=== PATIENT | female | born 1950 | race Caucasian/White ===

== ENCOUNTER → 2020-04-11 13:28 | Outpatient (BNVA) | payer MEDICARE, OTHER, SELFPAY | PROVIDERS: Family Provider Registered Nurse; PCP Registered Nurse; Visit Provider Nurse Practitioner Family | DX: K21.9 Gastro-esophageal reflux disease without esophagitis (principal); I10 Essential (primary) hypertension | CPT/HCPCS: 80048 ==

== ENCOUNTER → 2021-04-17 13:50 | Outpatient (BNVA) | payer MEDICARE, OTHER, SELFPAY | PROVIDERS: Family Provider Registered Nurse; PCP Registered Nurse; Visit Provider Nurse Practitioner Family | DX: I10 Essential (primary) hypertension (principal); K21.9 Gastro-esophageal reflux disease without esophagitis; Z79.899 Other long term (current) drug therapy | CPT/HCPCS: 80053 ==

== ENCOUNTER → 2021-04-26 09:46 | Outpatient (BNVA) | payer MEDICARE, OTHER, SELFPAY | PROVIDERS: Family Provider Registered Nurse; PCP Registered Nurse; Visit Provider Nurse Practitioner Family | DX: R73.9 Hyperglycemia, unspecified (principal) | CPT/HCPCS: 83036 ==

== ENCOUNTER 2021-08-08 12:54 | Outpatient (CLI) | payer MEDICARE, OTHER, SELFPAY ==
--- NOTE | 2021-08-08 13:00 | MR_ITS ---
WS: [id number] MRI LUMBAR SPINE NONCONTRAST TECHNIQUE: Sagittal T1, T2 and STIR imaging. Axial T1 and T2 imaging. CLINICAL INFORMATION: M51.36 - Other intervertebral disc degeneration, lumbar r... COMPARISON: None. FINDINGS: Mild lumbar curve. No acute compression. Grade 1 anterolisthesis L4 on L5. Small disc protrusions wor se at L1-2, L2-3, L3-4. Tiny disc protrusions in the lower thoracic spine. Small disc herniation T12- L1. L1-L2: Central disc herniation with slight subligamentous migration of disc material. Moderate centra l canal stenosis with impingement on the right subarticular recess and traversing right L2 nerve root . Moderate right foraminal narrowing. Moderate facet arthropathy. L2-L3: Small central disc protrusion. Moderate central canal stenosis. Impingement subarticular reces s bilaterally. Moderate right and mild left foraminal narrowing. Moderate facet arthropathy. L3-L4: Mild disc bulging with moderate to severe central canal stenosis. Moderate facet arthropathy l igament flavum hypertrophy. Impingement subarticular recess bilaterally. Moderate left and mild right foraminal narrowing. L4-L5: Grade 1 anterolisthesis. Severe central canal stenosis. Advanced facet arthropathy with ligame nt flavum hypertrophy. Impingement traversing L5 nerve roots bilaterally. Severe left and mild right foraminal narrowing. L5-S1: Mild disc osteophyte complex with endplate ridging. Slight effacement of ventral thecal sac. F oramen are patent. Moderate facet arthropathy. Mild central canal stenosis cervical spine on the flatwork catcher imaging worse at C5-C6 and C6-C7. Prominent c entral protrusion in the thoracic spine at T7-T8 with moderate central canal stenosis and indentation on the thoracic cord. This can be further evaluated with thoracic spine MRI. Enlarged multinodular t hyroid gland partially visualized in the flatwork catcher imaging Visualized pelvic bony structures: Normal. Paravertebral soft tissues: Normal. MR/MR lumbar spine wo con* [id number] IMPRESSION: 1. Severe central canal stenosis L4-5 with grade 1 anterolisthesis and mild di sc bulging. High-grade central canal stenosis with impingement on the traversin g L5 nerve roots bilaterally. 2. Severe left L4-5 foraminal narrowing impinges the exiting left L4 nerve india t. 3. Moderate central canal stenosis with small disc herniations at L1-2, L2-3, and L3-4 worse at L3-4. 4. Moderate right L1-2, and left L3-4 foraminal narrowing. 5. Moderate to advanced facet arthropathy L3-L5. 6. Enlarged multinodular thyroid partially visualized on the flatwork catcher imaging. Th is could be further evaluated with ultrasound. 7. Prominent central disc protrusion flatwork catcher imaging thoracic spine at T7-8 with moderate central canal stenosis. Recommend thoracic spine MRI. 8. Mild central canal stenosis cervical spine seen on the flatwork catcher imaging
== END 2021-08-08 12:55 | disposition home or self-care (01) ==
LOC: RADSHAW 13:03
PROVIDERS: Family Provider Registered Nurse; PCP Registered Nurse; Visit Provider Nurse Practitioner Family
DX: M51.36 Other intervertebral disc degeneration, lumbar region (principal); M48.061 Spinal stenosis, lumbar region without neurogenic claudication; M51.26 Other intervertebral disc displacement, lumbar region; M47.816 Spondylosis without myelopathy or radiculopathy, lumbar region; M51.24 Other intervertebral disc displacement, thoracic region; E04.2 Nontoxic multinodular goiter
CPT/HCPCS: 72148

== ENCOUNTER → 2021-08-09 10:57 | Outpatient (BNVA) | payer MEDICARE, OTHER, SELFPAY | PROVIDERS: Family Provider Registered Nurse; PCP Registered Nurse; Visit Provider Nurse Practitioner Family | DX: E04.2 Nontoxic multinodular goiter (principal); E04.1 Nontoxic single thyroid nodule | CPT/HCPCS: 84439; 84443 ==

== ENCOUNTER → 2021-09-18 12:55 | Outpatient (BNVA) | payer MEDICARE, OTHER, SELFPAY | PROVIDERS: Family Provider Registered Nurse; PCP Registered Nurse; Visit Provider Internal Medicine | DX: E04.1 Nontoxic single thyroid nodule (principal) | CPT/HCPCS: 99204 ==

== ENCOUNTER 2021-10-11 12:51 | Outpatient (CLI) | payer MEDICARE, OTHER, SELFPAY ==
--- NOTE | 2021-10-11 13:30 | US_ITS ---
WS: [id number] THYROID ULTRASOUND HISTORY: E04.1 - Nontoxic single thyroid nodule COMPARISON: None available. Technically very difficult evaluation of the thyroid due to body habitus. Right lobe: 1.9 cm x 3.0 cm x 4.7 cm (w x ap x l). Volume: 14.3 cm3. Enlarged heterogeneous and ill-defined gland. No discrete nodule. Left lobe: 1.5 cm x 2.0 cm x 4.3 cm (w x ap x l). Volume: 6.8 cm3. Mildly enlarged gland and heterogeneity. Isthmus: 0.8 cm. Very helpful echogenicity within the isthmus. US/US thyroid [id number] IMPRESSION: 1. Enlarged heterogeneous gland with variable echogenicity. Probably represent ing a multinodular goiter. Overall evaluation is very difficult due to body hab itus. No discrete nodules.
== END 2021-10-11 12:52 | disposition home or self-care (01) ==
LOC: RAD 12:53
PROVIDERS: PCP Registered Nurse; Visit Provider Nurse Practitioner Family
DX: E04.1 Nontoxic single thyroid nodule (principal); E04.9 Nontoxic goiter, unspecified
CPT/HCPCS: 76536

== ENCOUNTER 2021-10-30 08:02 | Outpatient (CLI) | payer MEDICARE, OTHER, SELFPAY ==
--- NOTE | 2021-10-30 09:00 | US_ITS ---
WS: [id number] INDICATION: Thyroid nodule TECHNIQUE: Ultrasound-guided FNA FINDINGS: The procedure including risks, benefits, and complications were discussed with the patient who agreed to proceed. Timeout was performed. Using sterile technique patient was prepped and draped in usual sterile fashion. After 1% lidocaine, using ultrasound guidance, a 25-gauge needle was advanc ed into the left upper thyroid nodule. 5 passes were made with active aspiration. Pathology was prese nt for slide preparation. No immediate complications. Patient remained in the ultrasound Suite 20 min utes postprocedure with intermittent ultrasound to ensure no hematoma. No hematoma 20 minutes postpro cedure. US/US biopsy/FNA thyroid [id number] IMPRESSION: Uncomplicated ultrasound-guided thyroid FNA
== END 2021-10-30 08:03 | disposition home or self-care (01) ==
LOC: RAD 08:09
PROVIDERS: PCP Registered Nurse; Visit Provider Internal Medicine
DX: E04.1 Nontoxic single thyroid nodule (principal)
CPT/HCPCS: 10005; 88173; 88305

== ENCOUNTER → 2021-11-16 10:16 | Outpatient (BNVA) | payer MEDICARE, OTHER, SELFPAY | PROVIDERS: PCP Registered Nurse; Visit Provider Nurse Practitioner Family | DX: E04.1 Nontoxic single thyroid nodule (principal); I10 Essential (primary) hypertension; E55.9 Vitamin D deficiency, unspecified | CPT/HCPCS: 80053; 82306; 84443 ==

== ENCOUNTER → 2022-02-19 13:28 | Outpatient (BNVA) | payer MEDICARE, OTHER, SELFPAY | PROVIDERS: PCP Registered Nurse; Visit Provider Internal Medicine | DX: E04.1 Nontoxic single thyroid nodule (principal); M54.9 Dorsalgia, unspecified | CPT/HCPCS: 99213; 99214 ==

== ENCOUNTER → 2022-02-25 09:13 | Outpatient (BNVA) | payer MEDICARE, OTHER, SELFPAY | PROVIDERS: PCP Registered Nurse; Visit Provider Nurse Practitioner Family | DX: E55.9 Vitamin D deficiency, unspecified (principal); I10 Essential (primary) hypertension | CPT/HCPCS: 80053; 80061; 82306 ==

== ENCOUNTER 2022-03-25 13:33 | Outpatient (CLI) | payer MEDICARE, OTHER, SELFPAY ==
--- NOTE | 2022-03-25 13:30 | US_ITS ---
WS: [id number] THYROID ULTRASOUND HISTORY: assess change in size in thyroid nodule COMPARISON: 10/11/2021 Evaluation of the thyroid is very difficult due to body habitus and the enlarged thyroid which extend s substernal. Right lobe: 2.4 cm x 2.9 cm x 6.6 cm (w x ap x l). Volume: 23.7 cm3. Enlarged incompletely visualized RIGHT thyroid. Multinodular with mild variable echogenicity. Predomi nantly low echogenicity with lobulated contours extends posterior and substernal. Probably not signif icantly changed in size. Left lobe: 1.6 cm x 2.3 cm x 3.3 cm (w x ap x l). Volume: 6.2 cm3. Heterogeneous lobulated thyroid. Similar to the prior study. Isthmus: 0.9 cm. Nodular hypoechoic enlarged isthmus. US/US thyroid [id number] IMPRESSION: 1. Very difficult evaluation of the thyroid gland. Diffusely abnormal thyroid but greatest involving the RIGHT lobe and the isthmus. There is no one discrete area that stands out as being more abnormal than another. This may all simply be a multinodular goiter. A neoplasm cannot be excluded. With the extent of dis ease a focused biopsy would probably not be helpful as there is no one focal ar ea to concentrate the biopsy on. For further evaluation surgical removal may be necessary.
== END 2022-03-25 13:34 | disposition home or self-care (01) ==
LOC: RAD 13:37
PROVIDERS: PCP Registered Nurse; Visit Provider Internal Medicine
DX: E04.1 Nontoxic single thyroid nodule (principal)
CPT/HCPCS: 76536

== ENCOUNTER → 2022-04-01 12:23 | Outpatient (BNVA) | payer MEDICARE, OTHER, SELFPAY | PROVIDERS: PCP Registered Nurse; Visit Provider Internal Medicine | DX: E04.1 Nontoxic single thyroid nodule (principal) | CPT/HCPCS: 99214 ==

== ENCOUNTER 2022-07-02 09:39 | Outpatient (CLI) | payer MEDICARE, OTHER, SELFPAY ==
--- NOTE | 2022-07-02 10:00 | US_ITS ---
WS: [id number] THYROID ULTRASOUND HISTORY: abnormal thyroid US COMPARISON: 03/25/2022, 10/30/2021, 10/11/2021 Right lobe: 1.9 cm x 2.5 cm x 4.7 cm (w x ap x l). Volume: 11.7 cm3. Enlarged lobulated mildly heterogeneous thyroid. The entire gland is lobulated although there is no 1 discrete nodule. There is distortion of the adjacent soft tissues. Thyroid extends both anterior and posterior from the normal position of the thyroid. Similar appearance on the study of 10/11/2021. On a few images there may be extension beyond the thyroid gland into the adjacent strap muscles. No terry cifications or echogenic foci. Left lobe: 1.4 cm x 2.4 cm x 3.5 cm (w x ap x l). Volume: 6.2 cm3. The entire gland is enlarged and lobulated and hypoechoic. Similar in appearance to prior studies. LE FT thyroid was biopsied on 10/30/2021. Isthmus: 0.9 cm. Nodular appearance to the isthmus. US/US thyroid [id number] IMPRESSION: 1. Enlarged mildly heterogeneous thyroid. The entire gland is hypoechoic and m ildly nodular although enlarged. Neoplasm would be difficult to detect due to t his extensive enlargement. 2. Focal area of possible invasion into the strap muscle involving the RIGHT t hyroid versus enlargement and displacement of the strap muscle. Fine-needle asp iration may be helpful in this location. 3. Prior LEFT thyroid biopsy has been performed.
== END 2022-07-02 09:40 | disposition home or self-care (01) ==
LOC: RAD 09:39
PROVIDERS: PCP Registered Nurse; Visit Provider Internal Medicine
DX: E04.1 Nontoxic single thyroid nodule (principal); E04.9 Nontoxic goiter, unspecified
CPT/HCPCS: 76536

== ENCOUNTER → 2022-08-20 14:22 | Outpatient (BNVA) | payer MEDICARE, OTHER, SELFPAY | PROVIDERS: PCP Registered Nurse; Visit Provider Orthopaedic Surgery | DX: M48.061 Spinal stenosis, lumbar region without neurogenic claudication (principal); M51.36 Other intervertebral disc degeneration, lumbar region | CPT/HCPCS: 72110; 99204 ==

== ENCOUNTER → 2022-09-05 12:36 | Outpatient (BNVA) | payer MEDICARE, OTHER, SELFPAY | PROVIDERS: PCP Registered Nurse; Visit Provider Internal Medicine | DX: I10 Essential (primary) hypertension (principal); E04.1 Nontoxic single thyroid nodule | CPT/HCPCS: 99213 ==

== ENCOUNTER → 2022-09-09 08:03 | Outpatient (BNVA) | payer MEDICARE, OTHER, SELFPAY | PROVIDERS: PCP Nurse Practitioner Family; Visit Provider Nurse Practitioner Family | DX: I10 Essential (primary) hypertension (principal); K21.9 Gastro-esophageal reflux disease without esophagitis | CPT/HCPCS: 80053; 80061; 87338 ==

== ENCOUNTER 2022-09-27 07:17 | Day surgery (SDC) | payer MEDICARE, OTHER, SELFPAY ==
[2022-09-23 09:52] VITALS: BMI 42.1
--- NOTE | 2022-09-23 10:15 | ECG_ITS ---
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 Measurements Intervals [place] Rate: 53 P: 37 SC: 154 QRS: -25 QRSD: 141 T: 8 QT: 468 QTc: 443 Interpretive Statements SINUS BRADYCARDIA BORDERLINE LEFT AXIS DEVIATION [QRS AXIS < -20] RIGHT BUNDLE BRANCH BLOCK [120+ ms QRS DURATION, UPRIGHT V1, 40+ ms S IN I/aVL/V4/V5/V6] No previous ECG available for comparison Electronically Signed On 09-23-2022 19:04:03 ACCESS REP by Doe Flannery M.D. [id number]
--- NOTE | 2022-09-23 16:54 | ANES.PREANE2 ---
Pre-Anesthetic Assessment Height/Weight: Height 1.6 m Weight 107.955 kg Operation Date: 09/27/22 09:45 Proposed Procedures p Lumbar Spine Decompression L4/5 17007/M54.9(Not Applicable) - Naun Logan DO Familial anesthetic complications: none Was Beta Charmaine taken within 24 hours: N/A Was Clonidine taken within 24 hours: N/A Social No alcohol and No tobacco Exam alert, oriented x 3, clear to auscultation bilaterally and regular rate & rhythm Airway Submandibular: within normal limits Cervical ROM: within normal limits Mallampati: Class II Dentition: chipped Comments: Comments: Poor dentition, multiple caries Pulmonary Sleep Apnea CV/HEM Hypertension Metabolic Morbid Obesity Musc/skel Lower Back Pain and Osteoarthritis/DJD Anesthetic Plan ASA status: 3 Anesthesia: General Medications/Allergies Home Medications Medication Instructions Recorded Confirmed Last Taken Type aspirin 81 mg tablet,delayed 81 mg PO DAILY 09/18/21 09/23/22 09/22/22 History release chlorpheniramine-acetaminophen 2 1 tab PO Q6H 09/18/21 09/23/22 09/23/22 History mg-325 mg tablet (Coricidin HBP Cold and Flu) cholecalciferol (vitamin D3) 25 25 mcg PO DAILY 09/18/21 09/23/22 09/23/22 History mcg (1,000 unit) capsule xoxwt-khv-njppqfchaq-C-zinc 6 38 ml PO 1XD allergies 09/18/21 09/23/22 09/23/22 History gram-38 mg-25 mg-34 mg/5 mL oral syrup loratadine 10 mg tablet (Claritin) 10 mg PO DAILY 09/18/21 09/23/22 09/23/22 History celecoxib 200 mg capsule (Celebrex) 200 mg PO BID #180 caps 08/08/22 09/23/22 09/23/22 Rx lisinopril 40 mg tablet 40 mg PO BIDWMEAL #180 tabs 08/08/22 09/23/22 09/23/22 Rx lansoprazole 30 mg capsule,delayed See Rx Instructions .Route 09/02/22 09/23/22 09/23/22 Rx release .COMPLEX #30 caps quercetin 500 mg capsule 500 mg PO 1XD 09/23/22 09/23/22 09/23/22 History Allergies Allergy/AdvReac Type Severity Reaction Status Date / Time Sulfa (Sulfonamide Allergy Unknown Verified 09/23/22 09:44 Antibiotics) sulfamethoxazole Allergy Unknown Verified 09/23/22 09:44 [From Bactrim] trimethoprim [From Bactrim] Allergy Unknown Verified 09/23/22 09:44 [facility] Anesthesia Medical History Hypertension Vitamin D deficiency Surgical History History of hip replacement Family History Father Heart failure Degenerative disc disease, lumbar Muscle spasm Mother CHF (congestive heart failure) History of right hip replacement Cataract (lens) fragments in eye following cataract surgery Social History Smoking and tobacco status: never smoked Second hand smoke exposure: No Smoking risk assessment/counseling performed?: No Alcohol intake: never Desire information about alcohol rehabilitation?: No Counseling given: No Desire information about substance/drug rehabilitation?: No Counseling given: No Adopted: No Caregiver/support person: No Lives independently: No Household members: spouse Housing: House Marital status: Number of children: 1 Number of grandchildren: 1 Highest education level completed: High School Graduate service: No Current occupational status: retired History of recent travel: No Data Anesthesia Cardiac Studies: No Data to Display
[2022-09-27] VITALS (7 sets, daily range): BP systolic 134–199; BP diastolic 61–79; PULSE 54–69; RESP 16–18; TEMP 36.1–36.6; O2SAT 95–98
--- NOTE | 2022-09-27 | XR_ITS ---
WS: [id number] EXAMINATION: XR lumbar spine 1V 14972 L-SPINE : 1 views REASON FOR EXAM: L4-5 decompression COMPARISON: None available. ORDER DATE: 09/27/2022 12:00 AM FINDINGS: Single view surgical instrument placed in the lumbar region XR/XR lumbar spine 1V 95509 IMPRESSION: Intraoperative C-arm view obtained as noted.
[2022-09-27] MEDS: sodium chloride 0.9% 1,000 ML 30 ML IV (08:33)
--- NOTE | 2022-09-27 08:33 | PM.HP ---
Providers/Chief Complaint Primary Care Provider: TOMMY Draper Chief Complaint: LUMBAR DECOMPRESSION L4/5 /85503/M54.9 History of Present Illness Flower Estrada is a 72 year old female She states she has had lower back pain for several years. She states she was evaluated at [facility] in [place] for her lower back. She states she relieved an MRI in April,. She states her pain radiates from her lower back into her bilateral lower extremities. She reports numbness, tingling and weakness. She has tried multiple HARINI at [facility] with no relief. She reports bilateral hip replacements performed in [place] at [facility] in 2011 and 2013. Review of Systems General: Reports: 10 or more systems reviewed and unremarkable except in HPI and below Const: Denies: fever(s), chills or body aches Card: Denies: chest pain or orthopnea Resp: Denies: dyspnea, productive cough or wheezing GI: Denies: abdominal pain, nausea or vomiting Musc: Reports: back pain and extremity pain Skin/Breast: Denies: changes in skin color or dry skin Neuro: Reports: numbness in extremities and weakness in extremities Psych: Denies: anxiety Julio/Lymph: Denies: easy bruising or easy bleeding Medications/Allergies Home Medications Medication Instructions Recorded Confirmed Last Taken Type aspirin 81 mg tablet,delayed 81 mg PO DAILY 09/18/21 09/23/22 09/22/22 History release chlorpheniramine-acetaminophen 2 1 tab PO Q6H 09/18/21 09/23/22 09/23/22 History mg-325 mg tablet (Coricidin HBP Cold and Flu) cholecalciferol (vitamin D3) 25 25 mcg PO DAILY 09/18/21 09/23/22 09/23/22 History mcg (1,000 unit) capsule hscnn-dxv-efnelmuxwa-C-zinc 6 38 ml PO 1XD allergies 09/18/21 09/23/22 09/23/22 History gram-38 mg-25 mg-34 mg/5 mL oral syrup loratadine 10 mg tablet (Claritin) 10 mg PO DAILY 09/18/21 09/23/22 09/23/22 History celecoxib 200 mg capsule (Celebrex) 200 mg PO BID #180 caps 08/08/22 09/23/22 09/23/22 Rx lisinopril 40 mg tablet 40 mg PO BIDWMEAL #180 tabs 08/08/22 09/23/22 09/23/22 Rx lansoprazole 30 mg capsule,delayed See Rx Instructions .Route 09/02/22 09/23/22 09/23/22 Rx release .COMPLEX #30 caps quercetin 500 mg capsule 500 mg PO 1XD 09/23/22 09/23/22 09/23/22 History Allergies Allergy/AdvReac Type Severity Reaction Status Date / Time Sulfa (Sulfonamide Allergy Unknown Verified 09/23/22 09:44 Antibiotics) sulfamethoxazole Allergy Unknown Verified 09/23/22 09:44 [From Bactrim] trimethoprim [From Bactrim] Allergy Unknown Verified 09/23/22 09:44 PFSH Acute PFSH: Medical History Hypertension Vitamin D deficiency Surgical History History of hip replacement Family History Father Heart failure Degenerative disc disease, lumbar Muscle spasm Mother CHF (congestive heart failure) History of right hip replacement Cataract (lens) fragments in eye following cataract surgery Social History Smoking and tobacco status: never smoked Second hand smoke exposure: No Smoking risk assessment/counseling performed?: No Alcohol intake: never Desire information about alcohol rehabilitation?: No Counseling given: No Desire information about substance/drug rehabilitation?: No Counseling given: No Adopted: No Caregiver/support person: No Lives independently: No Household members: spouse Housing: House Marital status: Number of children: 1 Number of grandchildren: 1 Highest education level completed: High School Graduate service: No Current occupational status: retired History of recent travel: No Vitals/I&O/Wt Last Vital Signs Temp 97.3 F L 09/27/22 07:45 Pulse 56 L 09/27/22 07:45 Resp 16 09/27/22 07:45 BP 199/79 09/27/22 07:45 Pulse Ox 96 09/27/22 07:45 O2 Del Method 09/27/22 07:50 Physical Exam Narrative: CONSTITUTIONAL: The patient is a normal appearing [] in no apparent distress. GENERAL: Patient in no acute distress. CARDIAC: Regular rate and rhythm. CHEST: Normal inspiratory effort, normal respiratory rate. ABDOMEN: Soft and nontender. SKIN: Clear, warm and intact. NEURO?PSYCH: The patient is alert and oriented to person, place and time. Sensorv /SILT Motor StrengthShoulder abduction C5 5/5Wrist extension C6 5/5Elbow extension C7 5/5Hand Cartridge Feeder C8 5/5Finger abduction T15/5 Radial/ Ulnar/ Median n intact LowerSensory (SILT)Motor StrengthHin flexion L2/3Ant/inner thigh 5/5Hip adduction L2/3 5/5Knee extension L4 Lat thigh, 5/5Toe dorsiflexion L5 5/5Ankle dorsiflexion L5/ [id number] flexion S1 5/5 DTRBleeps 2+Triceps 2+Brachioradialis 2+Patellar 2+Achilles 2+ MUSCULOSKELETAL: [] UPPEREXTREMITIES: The patient had full active ROM in fingers, wrist, elbow, and shoulder. The patient demonstrated ability to fully flex/extend/abduct/adduct fingers, make ok sign, cross 2nd/3rd digits, extend 1st digit fully.. Radial pulse 2+, CR<2 seconds. LOWER EXTREMITIES: Pt has full, active ROM of toes, ankle, knee, and hip. Dorsalis pedis/posterior tibialis pulses 2+, CR<2 seconds. SPINE: Skin warm, dry, intact. A&P Assessment and plan (1) Lumbar stenosis with neurogenic claudication: L4/5 MIS decompression Attestations Medical Necessity Statement*: failed conservative tx Coding Level of Care Code Acute Sample Checker for [facility] Fwd Diagnoses Lumbar stenosis with neurogenic claudication M48.062
--- NOTE | 2022-09-27 08:34 | P.ANESUD_ITS ---
Pre-Anesthetic Update Pre-Anesthetic Assessment: Date of Surgery/Procedure: 09/27/22 Preop Taina gnosis: Lumbar radiculopathy Proposed Procedure: Operation Date: 09/27/22 09:15 Proposed Procedures p Lumbar Spine Decompression L4/5 83936/M54.9(Not Applicable) - Naun Logan, DO Any changes to Pre-Anesthetic Assessment?: No Last Intake: Intake Last Liquid Date 09/26/22 Last Liquid Time 23:30 Last Solid Date 09/26/22 Last Solid Time 18:00 Vitals: Temperature 97.3 F L 09/27/22 07:45 Temperature Source Temporal Artery S can 09/27/22 07:45 Pulse Rate 56 L 09/27/22 07:45 Pulse Rhythm 09/27/22 07:50 Pulse Strength 3+ Normal 09/27/22 07:50 Respiratory Rate 16 09/27/22 07:45 Blood Pressure 199/79 09/27/22 07:45 Blood Pressure Tatyana n 119 09/27/22 07:45 Pulse Oximetry 96 09/27/22 07:45 Oxygen Delivery Me thod 09/27/22 07:50 Exam: Pre-Anes Outpt Exam: alert, oriented x 3, clear to auscultation bilaterally and regular rate & rhythm Cardiac Studies: No Data to Display
[2022-09-27] MEDS: ceFAZolin 2,000 MG in sodium chloride 0.9% (plus) 50 ML 100 MG IV (09:00)
--- NOTE | 2022-09-27 10:27 | PM.OP ---
Operative Report Date of procedure: September 27, 2022 Pre-op diagnosis: Preop Diagnosis Lumbar stenosis with neurogenic claudication Post-op diagnosis: same Procedure done: 1. L4/5 laminectomy with partial facetecomies Surgeon: Naun Logan Consumer Insights Specialist: Will De Jesus Consumer Insights Specialist: The surgical instrument mechanic, Will De Jesus, JUSTUS was needed for his expertise under the microscope. He was important and necessary throughout the procedure to complete in a safe and timely manner. He assisted with patient positioning prepping and draping tissue retraction suctioning of the operative field protection of the dural sac and tissue closure Estimated blood loss (mL): 10 Procedure: 1. L4/5 laminectomy with partial facetecomies Patient is brought to the operative suite. After undergoing anesthesia they are placed in the prone position. All areas of impingement are well padded. Patient is then prepped and draped in the normal sterile fashion. A skin incision is made over the L4/5 level. This is confirmed under c-arm guidance. A series of dilators are passed and the tubular retractor is docked on the L4 lamina. A bovie is used to clear the soft tissue off the lamina and the L 4/5 facet joint. A high speed ernst is then used to perform the laminectomy and take down the medial aspect of the L 4/5 facet joint. A kerrison rongeure was then used to take down the remaining lamina and smooth the edged of the laminectomy up to the point where the ligamentum flavum attaches. Attention was then brought to the medial aspect of the facet joint. The remaining medial aspect of the superior and inferior aspect of the facet joint were taken down with the kerrison from the pedicle of L4 to L 5. The facet joint had significant hypertrophy. Attention was then brought to the Ligamentum Flavum. The ligament was taken down from the lamina of L4 to L5 and out medially to the remaining facet joint. The ligament was thick. The dura was then exposed. The dura was in good repair. The L4 nerve was then traced with a curette out the L4/5 foramen and found to be adequately decompressed. The L5 nerve was traced with a curette around the L5 pedicle. The lateral recess was opened with a kerrison helping to further decompress the L5 nerve. The tubular retractor was then tilted to the contralateral side. The bovie was used to take down the soft tissue on the spinous process. The high speed ernst was used to take down the spinous process and then the contralateral lamina of L4. The kerrison rongeur was used to take down the remaining lamina to the point where the ligamentum flavum attached and the ligamentum flavum was taken down from L4 to L5. The kerrison rongeur was then used to reach across and take down the medial aspect of the contralateral L4/5 facet joint.The currete was used to trace the contralateral L4 nerve out the L4/5 foramen to make sure it was decompressed adequatesly and the L5 was traced around the L5 pedicle. The lateral recess was opened further with the kerrison to ensure the L5 is adequately decompressed. Wound is then irrigated copiously with saline and surgiflo is used to stop any bleeding. The tubular retractor is removed and the wound is closed with vicryl and monocryl suture. Glue is then used to protect the wound. A sterile dressing is then placed. Patient was then placed in the supine position and transferred to the PACU in stable condition.
[2022-09-27] MEDS: HYDROcodone-acetaminophen 5-325 mg Tablet 1 TAB PO (11:05)
--- NOTE | 2022-09-27 15:34 | ANE.PACU2 ---
Inpatient post-anesthesia follow up: Airway intact: Yes Vital signs: Temperature 97.9 F Pulse Rate 54 Respiratory Rate 16 Blood Pressure 149/79 Pulse Oximetry 96 Oxygen Delivery Me thod Room Air Oxygen Flow Rate Fraction of Inspir ed Oxygen Hydration adequate: Yes Nausea and vomiting: No Pain level: 3 Mental status: Baseline
== END 2022-09-27 11:55 | disposition home or self-care (01) ==
PROVIDERS: PCP Nurse Practitioner Family; Visit Provider Orthopaedic Surgery
PROC: (CPT 63005; principal; 2022-09-27 09:15)
DX: M48.062 Spinal stenosis, lumbar region with neurogenic claudication (principal); G47.30 Sleep apnea, unspecified; I10 Essential (primary) hypertension; E66.01 Morbid (severe) obesity due to excess calories; Z79.82 Long term (current) use of aspirin
CPT/HCPCS: 63047; 72020; 76000; 93005; J0690; J1100; J2405; J2704; J2710; J3010; J3490; J7030

== ENCOUNTER → 2022-10-15 10:40 | Outpatient (BNVA) | payer MEDICARE, OTHER, SELFPAY | PROVIDERS: PCP Nurse Practitioner Family; Visit Provider Orthopaedic Surgery | DX: Z47.89 Encounter for other orthopedic aftercare (principal) | CPT/HCPCS: 99024 ==

== ENCOUNTER → 2022-11-12 10:50 | Outpatient (BNVA) | payer MEDICARE, OTHER, SELFPAY | PROVIDERS: PCP Nurse Practitioner Family; Visit Provider Orthopaedic Surgery | DX: Z47.89 Encounter for other orthopedic aftercare (principal) | CPT/HCPCS: 99024; 99205 ==

== ENCOUNTER → 2022-12-24 10:17 | Outpatient (BNVA) | payer MEDICARE, OTHER, SELFPAY | PROVIDERS: PCP Nurse Practitioner Family; Visit Provider Orthopaedic Surgery | DX: Z47.89 Encounter for other orthopedic aftercare (principal) | CPT/HCPCS: 99024 ==

== ENCOUNTER 2023-02-03 20:06 | Emergency (ER) | payer MEDICARE, OTHER, SELFPAY ==
[2023-02-03 21:02] VITALS: BP 184/71; PULSE 73; RESP 18; TEMP 36.8; O2SAT 96
[2023-02-03 21:32] LABS: Basophils % 0.2 %; Hematocrit 48.7 % (37.0-47.0); Hemoglobin 16.4 g/dL (11.5-15.3); Lymphocytes # 0.8 10^3/uL (0.8-4.8); Lymphocytes % 6.8 %; Mean Corpuscular HGB Conc 33.7 g/dL (30.0-36.0); Mean Corpuscular Hemoglobin 29.6 pg (28.0-34.0); Mean Corpuscular Volume 87.9 fl (81-99); Mean Platelet Volume 10.9 fL (7.4-10.4); Monocytes # 0.4 10^3/uL (0.2-0.9); Monocytes % 3.3 %; Neutrophils % 89.4 %; Nucleated Red Blood Cells % 0 %; Platelet Count 214 10^3/cmm (130-400); Red Blood Count 5.54 10^6/uL (4.1-5.3); Red Cell Distribution Width 12.7 % (12.1-15.1); White Blood Count 11.9 10^3/uL (4.0-10.0)
[2023-02-03 21:49] LABS: Alanine Aminotransferase 20 U/L (0-33); Albumin Level 4.5 g/dL (3.5-5.2); Alkaline Phosphatase 106 U/L (35-105); Anion Gap 20.7 (5-19); Aspartate Amino Transferase 22 U/L (0-32); Blood Urea Nitrogen 13 mg/dL (8-23); Carbon Dioxide 21 mmol/L (22-29); Chloride 95 mmol/L (98-107); Globulin 3.8 g/dL (1.3-4.6); Glucose 206 mg/dL (65-115); Lipase 18 U/L (13-60); Osmolality Calculated 282 mOsm/kg (285-295); Potassium 3.7 mmol/L (3.5-5.1); Sodium 133 mmol/L (136-145); Total Bilirubin 0.6 mg/dL (0.15-1.2); Total Protein 8.3 g/dL (6.6-8.7)
[2023-02-04 00:39] VITALS: BP 169/84; PULSE 75; RESP 20; O2SAT 95
[2023-02-04 00:41] VITALS: O2SAT 95
--- NOTE | 2023-02-04 00:49 | W.ED.NAVMDI ---
HPI - Nausea/Vomiting/Diarrhea General: Chief complaint: Nausea/Vomiting/Diarrhea Stated complaint: n/v Time Seen by Provider: 02/04/23 00:29 Source: patient Mode of arrival: ambulatory Limitations: no limitations History of Present Illness: 72-year-old female is a history of chronic issues with upper GI symptoms with belching and gas she is on meds for this but states that sometimes she would like that worked very well states she ate breakfast this morning since then she has been having a lot of gas and belching and feeling full in her stomach. She denies any actual pain she denies any fever she had no vomiting no diarrhea denies any worsening proving factors. Associated nausea: No Associated symtoms: Reports bloating; Denies chest pain, dysuria, headache(s) or nausea Review of Systems Const: Denies: fever(s) ENMT: Denies: throat pain or dental pain Card: Denies: chest pain Resp: Denies: dyspnea GI: Reports: bloating and belching; Denies: abdominal pain, nausea, vomiting or diarrhea : Denies: dysuria Musc: Denies: neck pain or back pain Skin/Breast: Denies: rash Neuro: Denies: headache(s) Psych: Denies: depression PFSH ED PFSH: Medical History Hypertension Vitamin D deficiency Surgical History History of hip replacement Family History Father Heart failure Degenerative disc disease, lumbar Muscle spasm Mother CHF (congestive heart failure) History of right hip replacement Cataract (lens) fragments in eye following cataract surgery Social History Smoking and tobacco status: never smoked Second hand smoke exposure: No Smoking risk assessment/counseling performed?: No Alcohol intake: never Desire information about alcohol rehabilitation?: No Counseling given: No Desire information about substance/drug rehabilitation?: No Counseling given: No Adopted: No Caregiver/support person: No Lives independently: No Household members: spouse Housing: House Marital status: Number of children: 1 Number of grandchildren: 1 Highest education level completed: High School Graduate service: No Current occupational status: retired Physical Exam Const: COMMON NORMALS: no acute distress, patient oriented x3 and healthy appearing HENMT: COMMON NORMALS: normocephalic and atraumatic HEAD & SCALP: normocephalic and atraumatic Eye: COMMON NORMALS: conjunctivae normal CONJUNCTIVA: Yes conjunctivae normal Neck/C-Spine: COMMON NORMALS: full ROM and supple Chest: COMMONS NORMALS: normal inspection of the chest Resp: COMMON NORMALS: normal respiratory effort Cardio: COMMON NORMALS: regular rate, regular rhythm and No murmurs present (Cardio) RATE: regular rate RHYTHM: regular rhythm GI: COMMON NORMALS: Normal to inspection, nondistended, normoactive bowel sounds present, Soft to palpation, non-tender and no masses PALPATION: Yes Soft to palpation Extremity: COMMON NORMALS: normal to inspection and full ROM Neuro: COMMON NORMALS: patient oriented x3, moves all extremities and no focal motor deficits Psych: COMMON NORMALS: mental status grossly normal, Normal thought process present and cooperative THOUGHT PROCESS: Normal thought process present Skin: COMMON NORMALS: no rashes or lesions noted and no wounds GENERAL SKIN EXAM: no rashes or lesions noted Course Vital Signs: Vital signs: Vital Signs Temperature 98.3 F 02/03/23 21:02 Pulse Rate 75 02/04/23 00:39 Respiratory Rate 20 H 02/04/23 00:39 Blood Pressure 169/84 02/04/23 00:39 Pulse Oximetry 95 02/04/23 00:41 Oxygen Delivery Me thod Room Air 02/04/23 00:41 MDM - Nausea/Vomiting/Diarrhea Medical Decision Making Patient presents here with chronic reflux with symptoms consistent with her reflux with belching and some upper abdominal discomfort her abdominal exam is benign she has no signs of acute surgical abdomen does not require CT scan at this time blood work is normal she feels much improved after GI cocktail and Protonix she is to continue her Prevacid we will prescribe her some Zofran she is to follow-up with her PCP and return if worsening she understands agrees to plan. Medical Records I reviewed the patient's medical records. Lab Data I reviewed the patient's lab results. 02/03/23 21:22 02/03/23 21:22 Laboratory Results WBC 11.9 10^3/uL (4.0-10.0) H 02/03/23 21:22 RBC 5.54 10^6/uL (4.1-5.3) H 02/03/23 21: Hgb 16.4 g/dL (11.5-15.3) H 02/03/23 21:22 Hct 48.7 % (37.0-47.0) H 02/03/23 21:22 MCV 87.9 fl (81-99) 02/03/23 21: MCH 29.6 pg (28.0-34.0) 02/03/23 21: MCHC 33.7 g/dL (30.0-36.0) 02/03/23 21: RDW 12.7 % (12.1-15.1) 02/03/23 21: Plt Count 214 10^3/cmm (130-400) 02/03/23 21: MPV 10.9 fL (7.4-10.4) H 02/03/23 21: Neut % (Auto) 89.4 % 02/03/23 21: Lymph % (Auto) 6.8 % 02/03/23 21:22 [place] % (Auto) 3.3 % 02/03/23 21:22 Eos % (Auto) 0.0 % 02/03/23 21: Baso % (Auto) 0.2 % 02/03/23 21: Neut # (Auto) 10.60 10^3/uL (1.8-7.7) H 02/03/23 21:22 Lymph # (Auto) 0.8 10^3/uL (0.8-4.8) 02/03/23 21: [place] # (Auto) 0.4 10^3/uL (0.2-0.9) 02/03/23 21:22 Eos # (Auto) 0.0 10^3/uL (0.0-0.8) 02/03/23 21:22 Baso # (Auto) 0.0 10^3/uL (0.0-0.1) 02/03/23 21: Nucleated RBC % (auto) 0 % 02/03/23 21: Nucleated RBCs # 0.0 /100WBC 02/03/23 21: Sodium 133 mmol/L (136-145) L 02/03/23 21:22 Potassium 3.7 mmol/L (3.5-5.1) 02/03/23 21: Chloride 95 mmol/L (98-107) L 02/03/23 21:22 Carbon Dioxide 21 mmol/L (22-29) L 02/03/23 21:22 Anion Gap 20.7 (5-19) H 02/03/23 21:22 BUN 13 mg/dL (8-23) 02/03/23 21:22 Creatinine 0.8 mg/dL (0.5-0.9) 02/03/23 21:22 GFR Calculation Not Reportable 02/03/23 21:22 Glucose 206 mg/dL (65-115) H 02/03/23 21:22 Calculated Osmolality 282 mOsm/kg (285-295) L 02/03/23 21:22 Calcium 9.0 mg/dL (8.5-10.5) 02/03/23 21:22 Total Bilirubin 0.6 mg/dL (0.15-1.2) 02/03/23 21:22 AST 22 U/L (0-32) 02/03/23 21:22 ALT 20 U/L (0-33) 02/03/23 21:22 Alkaline Phosphatase 106 U/L (35-105) H 02/03/23 21:22 Total Protein 8.3 g/dL (6.6-8.7) 02/03/23 21:22 Albumin 4.5 g/dL (3.5-5.2) 02/03/23 21:22 Globulin 3.8 g/dL (1.3-4.6) 02/03/23 21: Lipase 18 U/L (13-60) 02/03/23 21:22 Discharge Plan Discharge Patient Disposition: Home Clinical Impression: Chronic GERD, Abdominal pain Condition: Stable Prescriptions: New ondansetron 4 mg tablet,disintegrating 4 mg PO Q6H PRN (Reason: nausea and vomiting) Qty: 14 0RF No Action loratadine [Claritin] 10 mg tablet 10 mg PO DAILY aspirin 81 mg tablet,delayed release (DR/EC) 81 mg PO DAILY cholecalciferol (vitamin D3) 25 mcg (1,000 unit) capsule 25 mcg PO DAILY Coricidin HBP Cold and Flu 2-325 mg tablet 1 tab PO Q6H tzuzc-nab-xvfkqmzxom-C-zinc 6 gram-38 mg- 25 mg-34 mg/5mL syrup 38 ml PO 1XD lisinopril 40 mg tablet 40 mg PO BIDWMEAL Qty: 180 2RF celecoxib [Celebrex] 200 mg capsule 200 mg PO BID Qty: 180 2RF lansoprazole 30 mg capsule,delayed release(DR/EC) See Rx Instructions .ROUTE .COMPLEX Qty: 90 0RF Dose Instruction: TAKE 1 CAPSULE BY MOUTH DAILY Rx Instructions: TAKE 1 CAPSULE BY MOUTH DAILY quercetin 500 mg Capsule 500 mg PO 1XD hydrocodone-acetaminophen 5-325 mg tablet 1 - 2 tab PO .Q4-6H Qty: 40 0RF Discharge Orders: Discharge ED (Routine); Ordered 02/04/23 Ordered By: Santosh Menchaca Referrals: Erna Lambert FNP [Primary Care Provider] - 1-3 days Discharge Diet: Advance as tolerated Discharge Activity: Resume usual activity Patient Instructions: GERD (Gastroesophageal Reflux Disease) (ED), Abdominal Pain (ED) Coding Level of Care Code ED Finish Rolls Operator for Sarah Morton
[2023-02-04] MEDS: pantoprazole DR 40 mg Tablet PO (01:10)
[2023-02-04] MEDS: lidocaine 2% viscous 15 ML, aluminum-mag hydrox-simethicon 30 ML, sucralfate oral liq 1 GM PO (01:11)
[2023-02-04 01:59] VITALS: BP 142/67; PULSE 67; RESP 20; O2SAT 96
== END 2023-02-04 02:00 | disposition home or self-care (01) ==
PROVIDERS: Emergency Provider Emergency Medicine; PCP Nurse Practitioner Family
DX: K21.9 Gastro-esophageal reflux disease without esophagitis (principal); R10.9 Unspecified abdominal pain; Z79.82 Long term (current) use of aspirin; I10 Essential (primary) hypertension
CPT/HCPCS: 36415; 80053; 83690; 85025; 99283

== ENCOUNTER 2023-03-13 11:02 | Outpatient (CLI) | payer MEDICARE, OTHER, SELFPAY ==
--- NOTE | 2023-03-13 11:15 | US_ITS ---
WS: [id number] RIGHT UPPER QUADRANT ULTRASOUND HISTORY: R10.811 - Right upper quadrant abdominal tenderness COMPARISON: None available. Liver: 13.0 cm in length. Normal size liver and mild increase echogenicity. No bile duct dilatation o r mass. Portal Vein: Normal hepatopetal flow with monophasic waveform. Gallbladder: Normally distended gallbladder with no stones or wall thickening. CBD: 0.3 cm Pancreas: Normal size and echogenicity. Right kidney: 11.2 cm in length. Normal size and echogenicity. No hydronephrosis or mass. Aorta and IVC: Unremarkable abdominal aorta and IVC. No ascites. US/US gall bladder [id number] IMPRESSION: 1. Mild hepatic steatosis. 2. Otherwise normal. Normal gallbladder.
== END 2023-03-13 11:03 | disposition home or self-care (01) ==
PROVIDERS: PCP Nurse Practitioner Family; Visit Provider Nurse Practitioner Family
DX: R10.811 Right upper quadrant abdominal tenderness (principal); K76.0 Fatty (change of) liver, not elsewhere classified
CPT/HCPCS: 76705

== ENCOUNTER → 2023-03-27 09:51 | Outpatient (BNVA) | payer MEDICARE, OTHER, SELFPAY | PROVIDERS: PCP Nurse Practitioner Family; Visit Provider Orthopaedic Surgery | DX: M48.062 Spinal stenosis, lumbar region with neurogenic claudication (principal) | CPT/HCPCS: 99214 ==

== ENCOUNTER → 2023-06-03 14:01 | Outpatient (BNVA) | payer MEDICARE, OTHER, SELFPAY | PROVIDERS: PCP Nurse Practitioner Family; Visit Provider Student in an Organized Health Care Education/Training Program | DX: M17.11 Unilateral primary osteoarthritis, right knee | CPT/HCPCS: 20610; 73560; 73565; 97760; 99203; J3301; L1851 ==

== ENCOUNTER 2023-06-03 15:59 | Outpatient (CLI) | payer MEDICARE, OTHER, SELFPAY | END 2023-06-03 16:00 | disposition home or self-care (01) | LOC: SPT 16:00 | PROVIDERS: PCP Nurse Practitioner Family; Visit Provider Student in an Organized Health Care Education/Training Program | DX: M17.11 Unilateral primary osteoarthritis, right knee (principal) | CPT/HCPCS: 20610; 97760; 99203; J3301; L1851 ==

== ENCOUNTER → 2023-09-04 12:33 | Outpatient (BNVA) | payer MEDICARE, OTHER, SELFPAY | PROVIDERS: PCP Nurse Practitioner Family; Visit Provider Physician Assistant | DX: M25.569 Pain in unspecified knee (principal); M25.561 Pain in right knee; G89.29 Other chronic pain; M17.11 Unilateral primary osteoarthritis, right knee | CPT/HCPCS: 99213 ==

== ENCOUNTER → 2023-10-07 08:52 | Outpatient (BNVA) | payer MEDICARE, OTHER, SELFPAY | PROVIDERS: PCP Nurse Practitioner Family; Visit Provider Physician Assistant | DX: M17.11 Unilateral primary osteoarthritis, right knee | CPT/HCPCS: 20610; 99213; J7325 ==

== ENCOUNTER → 2023-10-14 09:36 | Outpatient (BNVA) | payer MEDICARE, OTHER, SELFPAY | PROVIDERS: PCP Nurse Practitioner Family; Visit Provider Internal Medicine | DX: E04.1 Nontoxic single thyroid nodule (principal) | CPT/HCPCS: 84439; 84443 ==

== ENCOUNTER → 2023-10-16 09:42 | Outpatient (BNVA) | payer MEDICARE, OTHER, SELFPAY | PROVIDERS: PCP Nurse Practitioner Family; Visit Provider Internal Medicine | DX: E04.1 Nontoxic single thyroid nodule (principal); E03.8 Other specified hypothyroidism; I10 Essential (primary) hypertension; Z79.890 Hormone replacement therapy | CPT/HCPCS: 99214 ==

== ENCOUNTER 2023-10-21 13:37 | Emergency (ER) | payer MEDICARE, OTHER, SELFPAY ==
[2023-10-21] VITALS (42 sets, daily range): BP systolic 111–227; BP diastolic 45–114; PULSE 67–96; RESP 6–25; TEMP 36.6; O2SAT 92–96; BMI 42.5
--- NOTE | 2023-10-21 15:23 | ECG_ITS ---
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 Measurements Intervals [place] Rate: 79 P: 41 OH: 147 QRS: -39 QRSD: 150 T: 44 QT: 407 QTc: 467 Interpretive Statements SINUS RHYTHM LEFT AXIS DEVIATION [QRS AXIS < -30] RIGHT BUNDLE BRANCH BLOCK [120+ ms QRS DURATION, UPRIGHT V1, 40+ ms S IN I/aVL/V4/V5/V6] Compared to ECG 09/23/2022 10:15:23 Sinus bradycardia no longer present Electronically Signed On 10-21-2023 17:53:05 HOT MILL ROLLER by William Bautista M.D. [email or web address] [facility] medical centerTextMasterholmes county jo[facility].[id number]
[2023-10-21 15:26] LABS: Basophils % 0.3 %; Hematocrit 49.5 % (36-47); Lymphocytes # 0.8 10^3/uL (0.8-4.8); Lymphocytes % 6.7 %; Mean Corpuscular HGB Conc 32.9 g/dL (30-55); Mean Corpuscular Hemoglobin 29.7 pg (27-33); Mean Corpuscular Volume 90.3 fl (85-98); Mean Platelet Volume 10.7 fL (7.4-10.4); Monocytes # 0.2 10^3/uL (0.2-0.9); Neutrophils # 10.95 10^3/uL (1.8-7.7); Neutrophils % 90.7 %; Nucleated Red Blood Cells % 0 %; Platelet Count 205 10^3/cmm (157-399); Red Blood Count 5.48 10^6/uL (3.85-5.65); Red Cell Distribution Width 12.5 % (12.1-15.1); White Blood Count 12.08 10^3/uL (3.29-11.43)
[2023-10-21] MEDS: cloNIDine 0.1 mg Tablet PO (15:38)
[2023-10-21 15:48] LABS: Alanine Aminotransferase 22 U/L (0-33); Albumin Level 4.5 g/dL (3.5-5.2); Alkaline Phosphatase 117 U/L (35-105); Anion Gap 20.1 (5-19); Aspartate Amino Transferase 23 U/L (0-32); Blood Urea Nitrogen 14 mg/dL (8-23); Calcium 9.1 mg/dL (8.5-10.5); Carbon Dioxide 21 mmol/L (22-29); Chloride 96 mmol/L (98-107); Glucose 173 mg/dL (65-115); Lipase 16 U/L (13-60); Osmolality Calculated 281 mOsm/kg (285-295); Potassium 4.1 mmol/L (3.5-5.1); Sodium 133 mmol/L (136-145); Total Bilirubin 0.7 mg/dL (0.15-1.2); Total Protein 8.5 g/dL (6.6-8.7)
[2023-10-21] MEDS: lidocaine 2% viscous 15 ML, aluminum-mag hydrox-simethicon 30 ML, sucralfate oral liq 1 GM PO (16:18)
[2023-10-21] MEDS: labetalol 5 mg/mL SDV 20mL 20 MG IVP (16:24)
[2023-10-21 17:30] LABS: Add Urine Microscopic? YES; Bilirubin Urine Neg (Negative); Blood Urine 2+ (Negative); Glucose Urine UA 1+ (Normal); Ketones Urine 1+ (Negative); Leukocyte Esterase Urine Trace (Negative); Nitrate Urine Negative (Negative); Protein Urine 2+ (Negative); Specific Gravity, Urine 1.015 (1.005-1.030); Urine Appearance Clear (CLEAR); Urine Color Yellow (Yellow); Urobilinogen Urine Norm (Negative); pH Urine 6.5 (5-7)
--- NOTE | 2023-10-21 17:35 | ED_ITS ---
HPI - Nausea/Vomiting/Diarrhea 2 General: Chief complaint: Nausea/Vomiting/Diarrhea Stated complaint: nausea Time Seen by Provider: 10/21/23 15:27 History of Present Illness: 73-year-old female presents emergency de partment accompanied by her . She endorses chronic gastroesophageal reflux disease and a hiatal hernia. She intermittently gets exacerbations where she feels like air and things get stuck in her epigastrium and she has frequent belching and regurgitation. She endorses having an acute exacerbation starting around 3 AM last night. She Belching and having air trapping. She tried taking Zofran and also took her lansoprazole. However this did not seem to help. She reports that she had 3 soft stools today but no diarrhea black or bloody stools. No hemoptysis or hematemesis. She is not having any chest pain. She was noted to have significantly elevated blood pressure on arrival. She says she takes lisinopril 40 mg in the mornings. She was unable to take this due to her symptoms. She does have a mild headache. Denies any chest pain, back pain, neck pain, jaw pain, arm pain. Symptoms are similar to multiple previous exacerbations. In the past she has taken a GI cocktail with good improvement of her symptoms. Associated symtoms: Denies altered mental status, change in vision, chest pain, dysuria or syncope Review of Systems 2 General: Reports: 10 or more systems reviewed and unremarkable except in HPI and below Const: Denies: fever(s), chills or body aches Eyes: Denies: change in vision ENMT: Denies: throat pain Card: Denies: chest pain, edema or syncope Resp: Denies: dyspnea or productive cough GI: Denies: abdominal pain or diarrhea : Denies: flank pain, dysuria or urinary frequency Musc: Denies: neck pain, back pain or extremity swelling Skin/Breast: Denies: rash or erythema Neuro: Denies: numbness in extremities, weakness in extremities or lack of coordination PFSH ED 2 PFSH: Medical History Vitamin D deficiency Hypertension Surgical History History of hip replacement Family History Father Heart failure Degenerative disc disease, lumbar Muscle spasm Mother CHF (congestive heart failure) History of right hip replacement Cataract (lens) fragments in eye following cataract surgery Social History Smoking and tobacco/nicotine status: never used tobacco/nicotine Second hand smoke exposure: No Alcohol intake: never Substance/Drug Use: never Adopted: No Caregiver/support person: No Lives independently: No Household members: spouse Housing: House Marital status: Number of children: 1 Number of grandchildren: 1 Highest education level completed: High School Graduate service: No Current occupational status: retired Physical Exam 2 Const: COMMON NORMALS: no limitations, alert and well nourished EXAM LIMITATIONS: no altered mental status HENMT: COMMON NORMALS: normocephalic, atraumatic and external ears normal H EAD & SCALP: normocephalic and atraumatic EXTERNAL EAR: Yes external ears normal MOUTH: no muffled voice Eye: COMMON NORMALS: EOMs intact bilaterally, conjunctivae normal and no scleral icterus CONJUNCTIVA: Yes conjunctivae normal Neck/C-Spine: COMMON NORMALS: no JVD GENERAL: Yes normal visual inspection and Yes trachea midline Resp: COMMON NORMALS: normal respiratory effort, No use of accessory muscles and clear to auscultation bilaterally AUSCULTATION: clear to auscultation bilaterally Cardio: COMMON NORMALS: no JVD, regular rate and regular rhythm RATE: r egular rate RHYTHM: regular rhythm GI: COMMON NORMALS: Soft to palpation and non-tender PALPATION: Yes Soft to palpation and No Guarding due to palpation present (GI) OTHER: When I have the patient sit up in a press just below her xiphoid, it allows her to burp. She does feel slightly better after she does get up some gas. Neuro: COMMON NORMALS: moves all extremities, no focal motor deficits and no sensory deficits noted SENSORIUM/ORIENTATION: Yes alert SPEECH: speech normal Psych: COMMON NORMALS: mental status grossly normal, Normal thought process present, cooperative, normal affect and speech normal SPEECH: Yes normal speech THOUGHT PROCESS: Normal thought process present Skin: COMMON NORMALS: no rashes or lesions noted, turgor normal and no jaundice GENERAL SKIN EXAM: no rashes or lesions noted and turgor normal Course 2 Vital Signs: Vital signs: Vital Signs Temperature 97.9 F 10/21/23 14:46 Pulse Rate 75 10/21/23 17:10 Respiratory Rate 9 L 10/21/23 17:10 Blood Pressure 202/93 10/21/23 17:10 Pulse Oximetry 96 10/21/23 17:10 Oxygen Delivery Me thod Room Air 10/21/23 15:49 MDM - Nausea/Vomiting/Diarrhea Medical Decision Making 73-year-old female with exacerbation of what she believes to be GERD and her hiatal hernia. She does not have any abdominal tenderness although she has tympany to percussion in the upper abdomen. Negative Clark sign. She does have hypertension but is asymptomatic. As a precaution, I obtained an EKG which didn't show ischemic changes. WBC 12, HGb 16. NaCl slightly low with mild metabolic acidosis. Glucose 173. Unlikely dka at this level. 1+ ketone urine likely starvation ketosis. Low suspicion for perforated ulcer, surgical abdomen, ACS. Patient was given a GI cocktail. Her symptoms resolved. She was able to drink a glass of water. Her belching improved. She was given labetalol as well as some clonidine for her blood pressure. It came down into the 160s. I am going to go ahead and give her lisinopril 20 mg p.o. as well now that she is able to tolerate p.o. Organ to give the patient 500 cc of IV fluid because she feels like she is dehydrated. After this, patient can be discharged with outpatient follow-up. Lab Data 10/21/23 15:17 10/21/23 15:17 Laboratory Results WBC 12.08 10^3/uL (3.29-11.43) H 10/21/23 15:17 RBC 5.48 10^6/uL (3.85-5.65) 10/21/23 15:17 Hgb 16.30 g/dL (11.27-16.99) 10/21/23 15:17 Hct 49.5 % (36-47) H 10/21/23 15:17 MCV 90.3 fl (85-98) 10/21/23 15:17 MCH 29.7 pg (27-33) 10/21/23 15:17 MCHC 32.9 g/dL (30-55) 10/21/23 15:17 RDW 12.5 % (12.1-15.1) 10/21/23 15:17 Plt Count 205 10^3/cmm (157-399) 10/21/23 15:17 MPV 10.7 fL (7.4-10.4) H 10/21/23 15:17 Neut % (Auto) 90.7 % 10/21/23 15:17 Lymph % (Auto) 6.7 % 10/21/23 15:17 [place] % (Auto) 2.0 % 10/21/23 15:17 Eos % (Auto) 0.0 % 10/21/23 15:17 Baso % (Auto) 0.3 % 10/21/23 15:17 Neut # (Auto) 10.95 10^3/uL (1.8-7.7) H 10/21/23 15:17 Lymph # (Auto) 0.8 10^3/uL (0.8-4.8) 10/21/23 15:17 [place] # (Auto) 0.2 10^3/uL (0.2-0.9) 10/21/23 15:17 Eos # (Auto) 0.0 10^3/uL (0.0-0.8) 10/21/23 15:17 Baso # (Auto) 0.0 10^3/uL (0.0-0.1) 10/21/23 15:17 Nucleated RBC % (auto) 0 % 10/21/23 15:17 Nucleated RBCs # 0.0 /100WBC 10/21/23 15:17 Sodium 133 mmol/L (136-145) L 10/21/23 15:17 Potassium 4.1 mmol/L (3.5-5.1) 10/21/23 15:17 Chloride 96 mmol/L (98-107) L 10/21/23 15:17 Carbon Dioxide 21 mmol/L (22-29) L 10/21/23 15:17 Anion Gap 20.1 (5-19) H 10/21/23 15:17 BUN 14 mg/dL (8-23) 10/21/23 15:17 Creatinine 0.7 mg/dL (0.5-0.9) 10/21/23 15:17 GFR Calculation Not Reportable 10/21/23 15:17 Glucose 173 mg/dL (65-115) H 10/21/23 15:17 Calculated Osmolality 281 mOsm/kg (285-295) L 10/21/23 15:17 Calcium 9.1 mg/dL (8.5-10.5) 10/21/23 15:17 Total Bilirubin 0.7 mg/dL (0.15-1.2) 10/21/23 15:17 AST 23 U/L (0-32) 10/21/23 15:17 ALT 22 U/L (0-33) 10/21/23 15:17 Alkaline Phosphatase 117 U/L (35-105) H 10/21/23 15:17 Total Protein 8.5 g/dL (6.6-8.7) 10/21/23 15:17 Albumin 4.5 g/dL (3.5-5.2) 10/21/23 15:17 Globulin 4.0 g/dL (1.3-4.6) 10/21/23 15:17 Lipase 16 U/L (13-60) 10/21/23 15:17 Urine Color Yellow (Yellow) 10/21/23 17:10 Urine Appearance Clear (CLEAR) 10/21/23 17:10 Urine pH 6.5 (5-7) 10/21/23 17:10 Ur Specific [place] 1.015 (1.005-1.030) 10/21/23 17:10 Urine Protein 2+ (Negative) H 10/21/23 17:10 Urine Glucose (UA) 1+ (Normal) H 10/21/23 17:10 Urine Ketones 1+ (Negative) H 10/21/23 17:10 Urine Blood 2+ (Negative) H 10/21/23 17:10 Urine Nitrate Negative (Negative) 10/21/23 17:10 Urine Bilirubin Neg (Negative) 10/21/23 17:10 Urine Urobilinogen Norm mg/dL (Negative) 10/21/23 17:10 Ur Leukocyte Esterase Trace (Negative) H 10/21/23 17:10 Amorphous Sediment Not Reportable 10/21/23 17:10 No radiology studies performed this visit Discharge Plan Discharge Patient Disposition: Home Clinical Impression: Chronic GERD Hypertension Qualifiers: Hypertension type: primary hypertension Qualified Code(s): I10 - Essential (primary) hypertension Condition: Stable Prescriptions: No Action loratadine [Claritin] 10 mg tablet 10 mg PO DAILY aspirin 81 mg tablet,delayed release (DR/EC) 81 mg PO QAM cholecalciferol (vitamin D3) 25 mcg (1,000 unit) capsule 25 mcg PO DAILY (DME) Aquatic Habitat Biologist Brace See Rx Instructions .Route .MEDSUPPLY Qty: 1 0RF Rx Instructions: As directed quercetin 500 mg Capsule 500 mg PO DAILY zinc acetate 50 mg (zinc) Capsule 50 mg PO DAILY ibuprofen 200 mg Tablet 600 - 800 mg PO Q6H PRN (Reason: Pain) alfalfa 650 mg Tablet 650 mg PO DAILY Elderberry Gummies 2 tab PO DAILY celecoxib 200 mg capsule 200 mg PO BID levothyroxine 25 mcg tablet 25 mcg PO QAM baclofen 20 mg tablet 10 mg PO BEDTIME lansoprazole 30 mg capsule,delayed release(DR/EC) 30 mg PO DAILY lisinopril 40 mg tablet 40 mg PO BID Discharge Orders: Discharge ED (Routine); Ordered 10/21/23 Ordered By: Martinez Price Referrals: Tay Beauchamp FNP [Primary Care Provider] - 4-7 days (ER f/u) Discharge Diet: Soft Mechanical Discharge Activity: Resume usual activity Patient Instructions: Hiatal Hernia (ED), GERD (Gastroesophageal Reflux Disease) (ED), Pain Management, Vomiting - Adult Activity Restrictions/Additional Instructions: Please read all discharge instructions and abide by recommendations and return precautions. Make an appointment to follow-up with your primary care doctor as directed for follow-up. Return to ER if getting worse or other emergent symptoms. Coding Level of Care Code ED Siphon Operator for Sarah Morton
[2023-10-21 17:40] LABS: Add Urine Culture? No; Mucus Urine 1+ /hpf; WBC Urine 0-4 /hpf (0-5)
[2023-10-21] MEDS: ondansetron 2 mg/ML SDV 2 mL 4 MG IVP (17:44)
[2023-10-21] MEDS: sodium chloride 0.9% 500 ML 999 ML IV (17:44)
[2023-10-21] MEDS: lisinopril 20 mg Tablet PO (17:44)
== END 2023-10-21 19:08 | disposition home or self-care (01) ==
PROVIDERS: Physician Assistant; Emergency Provider Emergency Medicine; PCP Nurse Practitioner Family
DX: K21.9 Gastro-esophageal reflux disease without esophagitis (principal); I10 Essential (primary) hypertension; Z79.82 Long term (current) use of aspirin
CPT/HCPCS: 80053; 81001; 83690; 85025; 93005; 96374; 96375; 99284; J2405; J3490; J7040

== ENCOUNTER → 2023-12-10 09:11 | Outpatient (BNVA) | payer MEDICARE, OTHER, SELFPAY | PROVIDERS: PCP Nurse Practitioner Family; Visit Provider Internal Medicine | DX: I10 Essential (primary) hypertension (principal) | CPT/HCPCS: 84439; 84443 ==

== ENCOUNTER → 2023-12-16 09:40 | Outpatient (BNVA) | payer MEDICARE, OTHER, SELFPAY | PROVIDERS: PCP Nurse Practitioner Family; Visit Provider Internal Medicine | DX: I10 Essential (primary) hypertension (principal); E04.1 Nontoxic single thyroid nodule; E03.8 Other specified hypothyroidism; Z79.890 Hormone replacement therapy | CPT/HCPCS: 99214 ==

== ENCOUNTER 2024-02-08 09:21 | Emergency (ER) | payer MEDICARE, SELFPAY ==
[2024-02-08 09:43] VITALS: BP 201/94; PULSE 100; TEMP 36.8; O2SAT 94; BMI 45.1
--- NOTE | 2024-02-08 09:49 | W.ED.NAVMDI ---
HPI - Nausea/Vomiting/Diarrhea General: Chief complaint: Nausea/Vomiting/Diarrhea Stated complaint: frequently burping, nausea Time Seen by Provider: 02/08/24 09:28 Source: patient Mode of arrival: ambulatory History of Present Illness: 73-year-old female complaining of reflux burping began last night. She has a history of reflux she is taken some medications with that but does not seem to be helping. She denies any hematemesis coffee-ground emesis no fever sweats or chills. Initial blood pressure significantly elevated no chest pain lightheadedness dizziness vision changes or other neurologic symptoms. Patient states she did take all of her blood pressure medications morning she has not and if anything particularly that she ate that seem to trigger it. She is on multiple medications for reflux and took some Carafate as well this morning. She has a chronic abdominal wall hernia that has not been hurting any worse than usual. MD elicited complaint: nausea and vomiting Onset (ago): hour(s) Associated nausea: Yes Location of pain: Epigastric Exacerbating factors: none Relieving factors: none Associated symtoms: Reports nausea; Denies altered mental status, anxiety, bloating, change in vision, chest pain, cough, diaphoresis, decreased urine output, dizziness, dysuria, epistaxis, fatigue, fecal incontinence, fevers/chills, headache(s), anorexia, malaise, myalgias, numbness, palpitations, rash, short of breath, syncope, tenesmus, tinnitus or weakness Review of Systems Const: Denies: fever(s), chills, fatigue, malaise or diaphoresis Eyes: Denies: change in vision ENMT: Denies: tinnitus or epistaxis Card: Denies: chest pain, palpitations or syncope Resp: Denies: dyspnea GI: Reports: nausea; Denies: abdominal pain, vomiting, hematemesis, diarrhea, bloating or fecal incontinence : Denies: dysuria, urinary frequency or urinary urgency Musc: Denies: neck pain or back pain Skin/Breast: Denies: rash Neuro: Denies: headache(s) or dizziness Psych: Denies: anxiety PFS ED PFSH: Medical History Vitamin D deficiency Hypertension Surgical History History of hip replacement Family History Father Heart failure Degenerative disc disease, lumbar Muscle spasm Mother Congestive heart failure (CHF) History of right hip replacement Cataract (lens) fragments in eye following cataract surgery Social History Smoking and tobacco/nicotine status: never used tobacco/nicotine Second hand smoke exposure: No Alcohol intake: never Substance/Drug Use: never Adopted: No Caregiver/support person: No Lives independently: No Household members: spouse Housing: House Marital status: Number of children: 1 Number of grandchildren: 1 Highest education level completed: High School Graduate service: No Current occupational status: retired Physical Exam Const: COMMON NORMALS: no acute distress EXAM LIMITATIONS: no altered mental status GENERAL APPEARANCE: cooperative and comfortable ORIENTATION/CONSCIOUSNESS: Yes awake, Yes oriented to person, Yes oriented to place and Yes oriented to time HENMT: COMMON NORMALS: normocephalic, atraumatic and hearing grossly normal bilaterally HEAD & SCALP: normocephalic and atraumatic Resp: COMMON NORMALS: normal respiratory effort, No retractions, No use of accessory muscles and clear to auscultation bilaterally AUSCULTATION: clear to auscultation bilaterally Cardio: COMMON NORMALS: regular rate, regular rhythm and No murmurs present (Cardio) RATE: regular rate RHYTHM: regular rhythm GI: COMMON NORMALS: Soft to palpation and No hepatosplenomegaly present AUSCULTATION: Yes normoactive bowel sounds PALPATION: Yes Soft to palpation, No Tenderness to palpation present (GI), No Guarding due to palpation present (GI) and Yes No hepatosplenomegaly present OTHER: Abdominal wall hernia not incarcerated midline supraumbilical Extremity: COMMON NORMALS: normal to inspection, capillary refill normal, no clubbing, cyanosis or edema, no calf tenderness and no pedal edema Neuro: SENSORIUM/ORIENTATION: Yes oriented to person, Yes oriented to place and Yes oriented to time Skin: COMMON NORMALS: no rashes or lesions noted GENERAL SKIN EXAM: no rashes or lesions noted Course Vital Signs: Vital signs: Vital Signs Temperature 98.2 F 02/08/24 09:43 Pulse Rate 94 02/08/24 13:55 Respiratory Rate 16 02/08/24 11:46 Blood Pressure 185/82 02/08/24 13:55 Pulse Oximetry 94 02/08/24 13:55 Oxygen Delivery Me thod Room Air 02/08/24 09:43 MDM - Nausea/Vomiting/Diarrhea Medical Decision Making CT shows inflammation of some of the small bowel in the hernia no signs of obstruction we will put her on a short course of steroids continue her other medications. If she has worsening symptoms return to the emergency room Medical Records I reviewed the patient's medical records. Lab Data I reviewed the patient's lab results. 02/08/24 10:05 02/08/24 10:05 Radiology Impressions Abdomen/Pelvis CT 02/08/24 11:55 IMPRESSION: There is history of an anterior abdominal wall hernia containing small bowel the appearance of which is progressively larger in the interval. There are some bowel fluid levels with borderline diameter and subtle stranding which could be seen with some early or intermittent inflammation. Currently, no distal or proximal small bowel dilatation is appreciated suggestive of overall patency. Laboratory Results WBC 9.69 10^3/uL (3.29-11.43) 02/08/24 10:05 RBC 4.90 10^6/uL (3.85-5.65) 02/08/24 10:05 Hgb 14.80 g/dL (11.27-16.99) 02/08/24 10:05 Hct 44.6 % (36-47) 02/08/24 10:05 MCV 91.0 fl (85-98) 02/08/24 10:05 MCH 30.2 pg (27-33) 02/08/24 10:05 MCHC 33.2 g/dL (30-55) 02/08/24 10:05 RDW 13.3 % (12.1-15.1) 02/08/24 10:05 Plt Count 190 10^3/cmm (157-399) 02/08/24 10:05 MPV 10.6 fL (7.4-10.4) H 02/08/24 10:05 Neut % (Auto) 90.1 % 02/08/24 10:05 Lymph % (Auto) 6.1 % 02/08/24 10:05 [place] % (Auto) 2.9 % 02/08/24 10:05 Eos % (Auto) 0.1 % 02/08/24 10:05 Baso % (Auto) 0.3 % 02/08/24 10:05 Neut # (Auto) 8.73 10^3/uL (1.8-7.7) H 02/08/24 10:05 Lymph # (Auto) 0.6 10^3/uL (0.8-4.8) L 02/08/24 10:05 [place] # (Auto) 0.3 10^3/uL (0.2-0.9) 02/08/24 10:05 Eos # (Auto) 0.0 10^3/uL (0.0-0.8) 02/08/24 10:05 Baso # (Auto) 0.0 10^3/uL (0.0-0.1) 02/08/24 10:05 Nucleated RBC % (auto) 0 % 02/08/24 10:05 Nucleated RBCs # 0.0 /100WBC 02/08/24 10:05 Sodium 131 mmol/L (136-145) L 02/08/24 10:05 Potassium 4.2 mmol/L (3.5-5.1) 02/08/24 10:05 Chloride 98 mmol/L (98-107) 02/08/24 10:05 Carbon Dioxide 21 mmol/L (22-29) L 02/08/24 10:05 Anion Gap 16.2 (5-19) 02/08/24 10:05 BUN 16 mg/dL (8-23) 02/08/24 10:05 Creatinine 0.6 mg/dL (0.5-0.9) 02/08/24 10:05 GFR Calculation Not Reportable 02/08/24 10:05 Glucose 155 mg/dL (65-115) H 02/08/24 10:05 Calculated Osmolality 276 mOsm/kg (285-295) L 02/08/24 10:05 Calcium 9.0 mg/dL (8.5-10.5) 02/08/24 10:05 Total Bilirubin 0.5 mg/dL (0.15-1.2) 02/08/24 10:05 AST 23 U/L (0-32) 02/08/24 10:05 ALT 28 U/L (0-33) 02/08/24 10:05 Alkaline Phosphatase 122 U/L (35-105) H 02/08/24 10:05 Total Protein 8.3 g/dL (6.6-8.7) 02/08/24 10:05 Albumin 4.5 g/dL (3.5-5.2) 02/08/24 10:05 Globulin 3.8 g/dL (1.3-4.6) 02/08/24 10:05 Urine Color Straw (Yellow) 02/08/24 10:20 Urine Appearance Clear (CLEAR) 02/08/24 10:20 Urine pH 8 (5-7) H 02/08/24 10:20 Ur Specific [place] 1.015 (1.005-1.030) 02/08/24 10:20 Urine Protein Neg (Negative) 02/08/24 10:20 Urine Glucose (UA) Norm (Normal) 02/08/24 10:20 Urine Ketones Negative (Negative) 02/08/24 10:20 Urine Blood 2+ (Negative) H 02/08/24 10:20 Urine Nitrate Negative (Negative) 02/08/24 10:20 Urine Bilirubin Neg (Negative) 02/08/24 10:20 Prot Sulfosalicylic Acd Negative (Negative) 02/08/24 10:20 Urine Urobilinogen Norm mg/dL (Negative) 02/08/24 10:20 Ur Leukocyte Esterase Negative (Negative) 02/08/24 10:20 Urine RBC 0-4 /hpf (0-2) H 02/08/24 10:20 Urine WBC None /hpf (0-5) 02/08/24 10:20 Ur Squamous Epith Cells Rare /hpf (0-5) 02/08/24 10:20 Amorphous Sediment Not Reportable 02/08/24 10:20 Urine Bacteria Trace /hpf (NONE) 02/08/24 10:20 All radiology interpretation(s) finalized by discharge Discharge Plan Discharge Patient Disposition: Home Clinical Impression: Abdominal wall hernia, Enteritis Condition: Stable Prescriptions: New Medrol (Papo) 4 mg tablets,dose pack See Rx Instructions .ROUTE .COMPLEX Qty: 21 0RF Rx Instructions: orally per package directions No Action loratadine [Claritin] 10 mg tablet 10 mg PO DAILY aspirin 81 mg tablet,delayed release (DR/EC) 81 mg PO QAM cholecalciferol (vitamin D3) 25 mcg (1,000 unit) capsule 25 mcg PO DAILY (DME) [employer] 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 See Rx Instructions .Route .MEDSUPPLY Qty: 1 0RF Rx Instructions: As directed amlodipine 5 mg tablet 5 mg PO DAILY Qty: 90 3RF esomeprazole magnesium [Nexium] 40 mg capsule,delayed release(DR/EC) 40 mg PO DAILY Qty: 90 3RF carisoprodol [Soma] 350 mg tablet 350 mg PO TID PRN (Reason: muscle pain) Qty: 60 2RF quercetin 500 mg Capsule 500 mg PO DAILY zinc acetate 50 mg (zinc) Capsule 50 mg PO DAILY ibuprofen 200 mg Tablet 600 - 800 mg PO Q6H PRN (Reason: Pain) alfalfa 650 mg Tablet 650 mg PO DAILY Elderberry Gummies 2 tab PO DAILY celecoxib 200 mg capsule 200 mg PO BID lisinopril 40 mg tablet 40 mg PO BID baclofen 20 mg tablet 20 mg PO QID PRN (Reason: Pain) levothyroxine 25 mcg tablet 25 mcg PO DAILY Discharge Orders: Discharge ED (Routine); Ordered 02/08/24 Ordered By: Kyle Patel Referrals: Tay Beauchamp FNP [Primary Care Provider] - Discharge Diet: Usual diet Patient Instructions: Opioid Safety, Pain Management Activity Restrictions/Additional Instructions: Thank you for choosing [facility] for your healthcare needs today. Please realize this is an emergency room and that we are providing you with a medical screening exam and this may not be complete and all inclusive of all the testing and or work up that you may need to determine your ailment or severity of your illness. It is very important that you follow up as instructed or that you return to the Emergency Department should you have concerns or if your condition changes or worsens in any way. You were seen today for abdominal pain. There is some inflammation of the small bowel noted on the CT today but no obstruction. Suspect that is a source of your discomfort. Recommend a short course of steroids. Follow-up with your primary care doctor for consideration of further evaluation including possible referral to gastroenterology if appropriate. Coding Level of Care Code ED Or Director for Sarah Morton
--- NOTE | 2024-02-08 09:52 | ECG_ITS ---
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 Measurements Intervals [place] Rate: 77 P: 47 MD: 161 QRS: -12 QRSD: 141 T: 36 QT: 403 QTc: 458 Interpretive Statements SINUS RHYTHM WITH OCCASIONAL VENTRICULAR PREMATURE COMPLEXES INTRAVENTRICULAR CONDUCTION DELAY [130+ ms QRS DURATION] Compared to ECG 10/21/2023 15:23:34 Ventricular premature complex(es) now present Intraventricular conduction delay now present Left-axis deviation no longer present Right bundle-branch block no longer present Electronically Signed On 02-09-2024 14:59:03 CDT by Khang Zuniga M.D. [id number]
[2024-02-08 10:14] LABS: Basophils % 0.3 %; Eosinophils % 0.1 %; Hematocrit 44.6 % (36-47); Lymphocytes # 0.6 10^3/uL (0.8-4.8); Lymphocytes % 6.1 %; Mean Corpuscular HGB Conc 33.2 g/dL (30-55); Mean Corpuscular Hemoglobin 30.2 pg (27-33); Mean Platelet Volume 10.6 fL (7.4-10.4); Monocytes # 0.3 10^3/uL (0.2-0.9); Monocytes % 2.9 %; Neutrophils # 8.73 10^3/uL (1.8-7.7); Neutrophils % 90.1 %; Nucleated Red Blood Cells % 0 %; Platelet Count 190 10^3/cmm (157-399); Red Cell Distribution Width 13.3 % (12.1-15.1); White Blood Count 9.69 10^3/uL (3.29-11.43)
[2024-02-08] MEDS: lidocaine 2% viscous 15 ML, aluminum-mag hydrox-simethicon 30 ML, sucralfate oral liq 1 GM PO (10:28)
[2024-02-08 10:30] LABS: Alanine Aminotransferase 28 U/L (0-33); Albumin Level 4.5 g/dL (3.5-5.2); Alkaline Phosphatase 122 U/L (35-105); Aspartate Amino Transferase 23 U/L (0-32); Blood Urea Nitrogen 16 mg/dL (8-23); Carbon Dioxide 21 mmol/L (22-29); Chloride 98 mmol/L (98-107); Creatinine Clr Calc Pharmacy 77.9762; Globulin 3.8 g/dL (1.3-4.6); Glucose 155 mg/dL (65-115); Osmolality Calculated 276 mOsm/kg (285-295); Sodium 131 mmol/L (136-145); Total Bilirubin 0.5 mg/dL (0.15-1.2); Total Protein 8.3 g/dL (6.6-8.7)
[2024-02-08 10:48] LABS: Urine Appearance Clear (CLEAR); Urine Color Straw (Yellow); pH Urine 8 (5-7)
[2024-02-08 10:49] LABS: Add Urine Culture? No; Add Urine Microscopic? YES; Bacteria Urine TRACE /hpf; Bilirubin Urine Neg (Negative); Blood Urine 2+ (Negative); Glucose Urine UA Norm (Normal); Ketones Urine Negative (Negative); Leukocyte Esterase Urine Negative (Negative); Nitrate Urine Negative (Negative); Protein Urine Neg (Negative); RBC Urine 0-4 /hpf (0-2); Specific Gravity, Urine 1.015 (1.005-1.030); Squamous Epithelial Cell Urine RARE /hpf (0-5); Sulfosalicylic Acid Urine Negative (Negative); Urobilinogen Urine Norm (Negative)
[2024-02-08 11:07] LABS: Anion Gap 16.2 (5-19); Potassium 4.2 mmol/L (3.5-5.1)
[2024-02-08 11:46] VITALS: BP 208/80; PULSE 87; RESP 16; O2SAT 93
[2024-02-08] MEDS: ondansetron 2 mg/ML SDV 2 mL 4 MG IVP (11:46)
--- NOTE | 2024-02-08 11:55 | CTR_ITS ---
PROCEDURE INFORMATION: Exam: CT Abdomen And Pelvis Without Contrast Exam date and time: 02/08/2024 12:37 PM Age: 73 years old Clinical indication: Abdominal pain; Prior surgery; Surgery date: 6+ months; Surgery type: Hips. No history of recent trauma or surgery is provided. TECHNIQUE: Imaging protocol: Computed tomography of the abdomen and pelvis without contrast. 226image(s) are provided. Radiation optimization: All CT scans at this facility use at least one of these dose optimization techniques: automated exposure control; mA and/or kV adjustment per patient size (includes targeted exams where dose is matched to clinical indication); or iterative reconstruction. Other technique: Axial images are available with sagittal and coronal reconstruction views. Automated dose exposure control is utilized. The DLP is 1103.02. COMPARISON: 1. CT abdomen pelvis w con* [id number] 06/07/2019 6:07 PM 2. US gall bladder [id number] 03/13/2023 11:17 AM RADIATION DOSE METRICS: Total DLP (mGy-cm): 1103.02 FINDINGS: Tubes, catheters and devices: The hip prosthetic hardware remains. There is some limiting streak artifact adjacent. Heart: No significant pericardial fluid collection is appreciated. Liver: The hepatic parenchyma appears relatively homogeneous overall. Gallbladder and bile ducts: There appears to be some trace gallbladder sludge. Pancreas: Unremarkable. Spleen: Unremarkable. Adrenal glands: Appears to be some slight adrenal hypertrophy similar. Kidneys and ureters: No radiopaque obstructive calculus or hydronephrosis appreciated. There is some minimal nonspecific perinephric stranding. Stomach and bowel: Some aspects of the colon are undistended. This may also be peristaltic related.There is some stool present limiting mucosal detail evaluation.The bowel gas pattern appears nonobstructive. There is a small sliding-type hiatal hernia demonstrated with slight gastroesophageal fold thickening. Appendix: No evidence of appendicitis. Intraperitoneal space: No gross free air or free fluid collections are currently appreciated. Vasculature: No interval abdominal aortic saccular aneurysmal dilatation is appreciated with chronic atherosclerotic, branch vessel related change. Lymph nodes: There are subcentimeter predominant para-aortic and mesenteric lymph nodes overall present. Urinary bladder: The bladder is incompletely fluid filled for evaluation which may exagerate the wall thickness. This along with the perinephric stranding can also be seen with urinary tract inflammation sequela. Reproductive: Unremarkable as visualized. Bones/joints: Osseous alignment is maintained. No interval displaced fracture or dislocation is appreciated.There is slightly decreased bone mineralization overall. There are some chronic appearing rib deformities present. There is some chronic appearing degenerative changes of the spine demonstrated including some bulky calcification and spurring contributing to some overall narrowing. Soft tissues: No radiopaque foreign body or subcutaneous emphysema is appreciated. There is history of previously described anterior abdominal wall hernia. Greatest transverse dimensions of this currently are around 14.5 x 8.5 cm with craniocaudal length of around 12.5 cm. This appears slightly larger overall in the interval containing multiple small bowel loops. The origin of the this measures around 3.6 cm in diameter. One of the largest areas of small bowel at this level measures around 2.7 cm in diameter along with some small bowel fluid levels. There is also some subtle stranding of the mesentery adjacent. No free air or free fluid collections are currently appreciated. No significant proximal or distal dilatation is currently appreciated. Other findings: There is some motion artifact present. No other significant interval changes are appreciated. CT/CT abdomen pelvis wo con [id number] IMPRESSION: There is history of an anterior abdominal wall hernia containing small bowel the appearance of which is progressively larger in the interval. There are some bowel fluid levels with borderline diameter and subtle stranding which could be seen with some early or intermittent inflammation. Currently, no distal or proximal small bowel dilatation is appreciated suggestive of overall patency.
[2024-02-08] MEDS: hyDRALAzine 20 mg/mL INJ 1 mL 10 MG IVP (11:56)
[2024-02-08 12:47] VITALS: BP 197/71; PULSE 81; O2SAT 95
[2024-02-08 13:32] VITALS: BP 185/82; PULSE 83; O2SAT 94
[2024-02-08 13:55] VITALS: BP 185/82; PULSE 94; O2SAT 94
== END 2024-02-08 13:57 | disposition home or self-care (01) ==
PROVIDERS: Emergency Provider Family Medicine; PCP Nurse Practitioner Family
DX: K52.9 Noninfective gastroenteritis and colitis, unspecified (principal); K43.9 Ventral hernia without obstruction or gangrene; Z79.82 Long term (current) use of aspirin; I10 Essential (primary) hypertension
CPT/HCPCS: 74176; 80053; 81001; 85025; 93005; 96374; 96375; 99285; J0360; J2405

== ENCOUNTER → 2024-03-09 09:21 | Outpatient (BNVA) | payer MEDICARE, SELFPAY | PROVIDERS: PCP Nurse Practitioner Family; Visit Provider Internal Medicine | DX: I10 Essential (primary) hypertension (principal); E04.1 Nontoxic single thyroid nodule | CPT/HCPCS: 84443 ==

== ENCOUNTER → 2024-03-17 09:26 | Outpatient (BNVA) | payer MEDICARE, OTHER, SELFPAY | PROVIDERS: PCP Nurse Practitioner Family; Visit Provider Internal Medicine | DX: I10 Essential (primary) hypertension (principal); E03.8 Other specified hypothyroidism; E04.1 Nontoxic single thyroid nodule; Z79.890 Hormone replacement therapy | CPT/HCPCS: 99214 ==

== ENCOUNTER → 2024-04-08 10:30 | Outpatient (BNVA) | payer MEDICARE, OTHER, SELFPAY | PROVIDERS: PCP Nurse Practitioner Family; Visit Provider Physician Assistant | DX: M17.11 Unilateral primary osteoarthritis, right knee | CPT/HCPCS: 20610; 99213; J7318 ==

== ENCOUNTER 2024-05-01 14:32 | Inpatient (IN) | payer MEDICARE, OTHER, SELFPAY ==
[2024-05-01] VITALS (12 sets, daily range): BP systolic 158–227; BP diastolic 83–110; PULSE 72–97; RESP 12–22; TEMP 36.8–36.9; O2SAT 93–97; BMI 44.2
--- NOTE | 2024-05-01 16:15 | XRR_ITS ---
PROCEDURE INFORMATION: Exam: XR Chest Exam date and time: 05/01/2024 4:23 PM Age: 74 years old Clinical indication: Nausea and vomiting; Patient HX: Nausea, vomitting, chills, abd pain; PT states shes been belching that started this morning. PT states this has happened before. PT states she drank some rootbeer and that helped. PT states she has also had more bowel movements and urination than normal. ; Additional info: Dyspepsia TECHNIQUE: Imaging protocol: Radiologic exam of the chest. Views: 1 view. COMPARISON: CT abdomen pelvis wo con [id number] 02/08/2024 12:37 PM FINDINGS: Lungs: Bibasilar atelectasis. Pleural spaces: Unremarkable. No pleural effusion. No pneumothorax. Heart/Mediastinum: Mild cardiomegaly. Vasculature: Unfolding of the thoracic aorta. Bones/joints: Mild degenerative of bilateral acromioclavicular joints and bilateral glenohumeral joints. PROCEDURE INFORMATION: Exam: XR Abdomen Exam date and time: 05/01/2024 4:23 PM Age: 74 years old Clinical indication: Nausea and vomiting; Patient HX: Nausea, vomitting, chills, abd pain; PT states shes been belching that started this morning. PT states this has happened before. PT states she drank some rootbeer and that helped. PT states she has also had more bowel movements and urination than normal. ; Additional info: Dyspepsia TECHNIQUE: Imaging protocol: Radiologic exam of the abdomen. Views: 2 Views. Upright and supine views. COMPARISON: CT abdomen pelvis con [id number] 02/08/2024 12:37 PM FINDINGS: Gastrointestinal tract: Nonobstructive bowel gas pattern. Intraperitoneal space: Normal. No free air. Bones/joints: Curvature of the lumbar spine convex to the right. Post bilateral hip arthroplasties. XR/XR acute abdomen series [id number] IMPRESSION: No acute cardiopulmonary process. IMPRESSION: Nonobstructive bowel gas pattern with no obvious pneumoperitoneum.
[2024-05-01 16:22] LABS: Basophils % 0.4 %; Hematocrit 50.5 % (36-47); Lymphocytes # 0.6 10^3/uL (0.8-4.8); Lymphocytes % 5.6 %; Mean Corpuscular HGB Conc 32.9 g/dL (30-55); Mean Corpuscular Hemoglobin 29.1 pg (27-33); Mean Corpuscular Volume 88.6 fl (85-98); Mean Platelet Volume 11.4 fL (7.4-10.4); Monocytes # 0.3 10^3/uL (0.2-0.9); Neutrophils # 10.12 10^3/uL (1.8-7.7); Neutrophils % 90.6 %; Nucleated Red Blood Cells % 0 %; Platelet Count 188 10^3/cmm (157-399); Red Cell Distribution Width 12.7 % (12.1-15.1); White Blood Count 11.17 10^3/uL (3.29-11.43)
--- NOTE | 2024-05-01 16:33 | ECG_ITS ---
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 Measurements Intervals [place] Rate: 71 P: 50 MT: 166 QRS: -50 QRSD: 136 T: 33 QT: 412 QTc: 450 Interpretive Statements SINUS RHYTHM WITH SINUS ARRHYTHMIA LEFT AXIS DEVIATION [QRS AXIS < -30] RIGHT BUNDLE BRANCH BLOCK [120+ ms QRS DURATION, UPRIGHT V1, 40+ ms S IN I/aVL/V4/V5/V6] Compared to ECG 02/08/2024 10:18:53 No significant change. Electronically Signed On 05-02-2024 16:03:23 CDT by Lanre Hairston M.D. [id number]
[2024-05-01 16:34] LABS: Alanine Aminotransferase 23 U/L (0-33); Albumin Level 4.8 g/dL (3.5-5.2); Alkaline Phosphatase 121 U/L (35-105); Blood Urea Nitrogen 11 mg/dL (8-23); Calcium 9.2 mg/dL (8.5-10.5); Carbon Dioxide 25 mmol/L (22-29); Chloride 95 mmol/L (98-107); Creatinine Clr Calc Pharmacy 75.9325; Globulin 4.4 g/dL (1.3-4.6); Glucose 180 mg/dL (65-115); Lipase 11 U/L (13-60); Osmolality Calculated 284 mOsm/kg (285-295); Sodium 135 mmol/L (136-145); Total Bilirubin 0.5 mg/dL (0.15-1.2); Total Protein 9.2 g/dL (6.6-8.7)
[2024-05-01 16:36] LABS: Troponin(5th) Baseline 17 ng/L (0-10)
[2024-05-01 16:41] LABS: Aspartate Amino Transferase 23 U/L (0-32)
--- NOTE | 2024-05-01 16:43 | ED_ITS ---
HPI - General Adult 2 General: Chief complaint: General Medical Stated complaint: n/v, chills, abd pain Time Seen by Provider: 05/01/24 15:39 History of Present Illness: 74-year-old female presents emergency de partment chief complaint of ongoing nausea and vomiting and dehydration patient is concerned that she her heartburn is acting up patient reports she takes medications for this as well as some rib. This seems to calm her stomach down she reports she did root beer as well as some baking soda to no avail patient presents ER for further assessment management she does not report any known history Heart issues she does report during her episodes of pain mostly noted to the epigastric region and with significant heartburn if she does become somewhat diet start sweating somewhat. Patient does not endorse any shortness of breath or palpitations associated with that she presents to the ER with her present for further assessment and management. PFSH ED 2 PFSH: Medical History Vitamin D deficiency Hypertension Surgical History History of hip replacement Family History Father Heart failure Degenerative disc disease, lumbar Muscle spasm Mother Congestive heart failure (CHF) History of right hip replacement Cataract (lens) fragments in eye following cataract surgery Social History Smoking and tobacco/nicotine status: never used tobacco/nicotine Second hand smoke exposure: No Alcohol intake: never Substance/Drug Use: never Adopted: No Caregiver/support person: No Lives independently: No Household members: spouse Housing: House Marital status: Number of children: 1 Number of grandchildren: 1 Highest education level completed: High School Graduate service: No Current occupational status: retired Physical Exam 2 Const: COMMON NORMALS: no acute distress, patient oriented x3 and healthy appearing HENMT: COMMON NORMALS: normocephalic and atraumatic HEAD & SCALP: n ormocephalic and atraumatic Eye: COMMON NORMALS: Equal, round and reactive pupils present and EOMs intact bilaterally PUPIL: Yes Equal, round and reactive pupils present Neck/C-Spine: COMMON NORMALS: full ROM, supple and no JVD Lymph: LYMPHATIC: no lymphadenopathy noted Chest: COMMONS NORMALS: normal inspection of the chest and normal palpation of entire chest wall Resp: COMMON NORMALS: normal respiratory effort, No retractions and clear to auscultation bilaterally EFFORT & INSPECTION: Yes able to speak in complete sentences and Yes symmetric chest movement AUSCULTATION: clear to auscultation bilaterally Cardio: COMMON NORMALS: no JVD, regular rate and regular rhythm RATE: r egular rate RHYTHM: regular rhythm GI: COMMON NORMALS: Soft to palpation; negative for Normal to inspection, nondistended, normoactive bowel sounds present and negative for non-tender (Mild pain to palpation over the epigastric region otherwise soft nontender ) INSPECTION: Yes normal to inspection P ALPATION: Yes Soft to palpation : COMMON NORMALS: Yes no CVA tenderness BLADDER/KIDNEY EXAM: Yes no CVA tenderness Back/Pelvis: COMMON NORMALS: no CVA tenderness Extremity: COMMON NORMALS: normal to inspection and full ROM Neuro: COMMON NORMALS: patient oriented x3, CN's II-XII intact bilaterally, moves all extremities and no focal motor deficits Psych: COMMON NORMALS: mental status grossly normal, Normal thought process present, cooperative and normal affect THOUGHT PROCESS: Normal thought process present Skin: COMMON NORMALS: no rashes or lesions noted GENERAL SKIN EXAM: no rashes or lesions noted Course 2 Vital Signs: Vital signs: Vital Signs Temperature 98.3 F 05/01/24 14:36 Pulse Rate 82 05/01/24 19:30 Respiratory Rate 17 05/01/24 19:30 Blood Pressure 168/94 05/01/24 19:30 Pulse Oximetry 93 05/01/24 19:30 Oxygen Delivery Me thod Room Air 05/01/24 19:30 MDM - General Adult Medical Decision Making Due to patient's symptoms and condition IV was established IV fluids provided for hydration with lab work and imaging obtained we will continue to follow. Patient's first troponin was found to be elevated at 17 followed by 2 are at 19 with a BNP of over 900 patient continues to have dry heaves reporting abdominal pain and significant heartburn related symptoms due to these associated symptoms like placing patient observation spoke to Dr. Henry that his excepted the patient in which I also spoke to Dr. Carrasco on for general surgery and which will be on for consultation the patient alaina stable condition at this time. Lab Data 05/01/24 15:45 05/01/24 15:45 Radiology Impressions Chest/Abdomen X-ray 05/01/24 16:15 IMPRESSION: No acute cardiopulmonary process. IMPRESSION: Nonobstructive bowel gas pattern with no obvious pneumoperitoneum. Abdomen/Pelvis CT 05/01/24 18:24 IMPRESSION: Large ventral abdominal hernia containing nondilated loops of small bowel. Some free fluid within the hernia sac is new from prior exam, clinical correlation for any potential developing strangulation recommended. Laboratory Results WBC 11.17 10^3/uL (3.29-11.43) 05/01/24 15:45 RBC 5.70 10^6/uL (3.85-5.65) H 05/01/24 15:45 Hgb 16.60 g/dL (11.27-16.99) 05/01/24 15:45 Hct 50.5 % (36-47) H 05/01/24 15:45 MCV 88.6 fl (85-98) 05/01/24 15:45 MCH 29.1 pg (27-33) 05/01/24 15:45 MCHC 32.9 g/dL (30-55) 05/01/24 15:45 RDW 12.7 % (12.1-15.1) 05/01/24 15:45 Plt Count 188 10^3/cmm (157-399) 05/01/24 15:45 MPV 11.4 fL (7.4-10.4) H 05/01/24 15:45 Neut % (Auto) 90.6 % 05/01/24 15:45 Lymph % (Auto) 5.6 % 05/01/24 15:45 [place] % (Auto) 3.0 % 05/01/24 15:45 Eos % (Auto) 0.0 % 05/01/24 15:45 Baso % (Auto) 0.4 % 05/01/24 15:45 Neut # (Auto) 10.12 10^3/uL (1.8-7.7) H 05/01/24 15:45 Lymph # (Auto) 0.6 10^3/uL (0.8-4.8) L 05/01/24 15:45 [place] # (Auto) 0.3 10^3/uL (0.2-0.9) 05/01/24 15:45 Eos # (Auto) 0.0 10^3/uL (0.0-0.8) 05/01/24 15:45 Baso # (Auto) 0.0 10^3/uL (0.0-0.1) 05/01/24 15:45 Nucleated RBC % (auto) 0 % 05/01/24 15:45 Nucleated RBCs # 0.0 /100WBC 05/01/24 15:45 Sodium 135 mmol/L (136-145) L 05/01/24 15:45 Potassium 4.0 mmol/L (3.5-5.1) 05/01/24 15:45 Chloride 95 mmol/L (98-107) L 05/01/24 15:45 Carbon Dioxide 25 mmol/L (22-29) 05/01/24 15:45 Anion Gap 19.0 (5-19) 05/01/24 15:45 BUN 11 mg/dL (8-23) 05/01/24 15:45 Creatinine 0.7 mg/dL (0.5-0.9) 05/01/24 15:45 GFR Calculation Not Reportable 05/01/24 15:45 Glucose 180 mg/dL (65-115) H 05/01/24 15:45 Calculated Osmolality 284 mOsm/kg (285-295) L 05/01/24 15:45 Calcium 9.2 mg/dL (8.5-10.5) 05/01/24 15:45 Total Bilirubin 0.5 mg/dL (0.15-1.2) 05/01/24 15:45 AST 23 U/L (0-32) 05/01/24 15:45 ALT 23 U/L (0-33) 05/01/24 15:45 Alkaline Phosphatase 121 U/L (35-105) H 05/01/24 15:45 Troponin T Baseline 17 ng/L (0-10) H 05/01/24 15:45 Troponin T 120 Minute 19.28 ng/L (0-10) H 05/01/24 18:00 Delta Troponin T 2.28 ABS# (0-10) 05/01/24 18:00 C-Reactive Protein 5.0 mg/L (0.0-4.9) H 05/01/24 15:45 NT-Pro-B Natriuret Pep 930 pg/mL (0-125) H 05/01/24 15:45 Total Protein 9.2 g/dL (6.6-8.7) H 05/01/24 15:45 Albumin 4.8 g/dL (3.5-5.2) 05/01/24 15:45 Globulin 4.4 g/dL (1.3-4.6) 05/01/24 15:45 Lipase 11 U/L (13-60) L 05/01/24 15:45 Urine Color Yellow (Yellow) 05/01/24 15:28 Urine Appearance Clear (CLEAR) 05/01/24 15:28 Urine pH 8 (5-7) H 05/01/24 15:28 Ur Specific [place] 1.015 (1.005-1.030) 05/01/24 15:28 Urine Protein 1+ (Negative) H 05/01/24 15:28 Urine Glucose (UA) 2+ (Normal) H 05/01/24 15:28 Urine Ketones 1+ (Negative) H 05/01/24 15:28 Urine Blood Trace (Negative) H 05/01/24 15:28 Urine Nitrate Negative (Negative) 05/01/24 15:28 Urine Bilirubin Neg (Negative) 05/01/24 15:28 Urine Urobilinogen Norm mg/dL (Negative) 05/01/24 15:28 Ur Leukocyte Esterase Negative (Negative) 05/01/24 15:28 Urine RBC 0-4 /hpf (0-2) H 05/01/24 15:28 Urine WBC None /hpf (0-5) 05/01/24 15:28 Ur Squamous Epith Cells None /hpf (0-5) 05/01/24 15:28 Amorphous Sediment Not Reportable 05/01/24 15:28 Urine Bacteria Trace /hpf (NONE) 05/01/24 15:28 All radiology interpretation(s) finalized by discharge Discharge Plan Discharge Patient Disposition: Admitted As Inpatient Clinical Impression: Hypertension, Hypertensive urgency, Elevated troponin I level, Ventral hernia, Abdominal pain, Intractable nausea and vomiting Condition: Stable Prescriptions: No Action loratadine [Claritin] 10 mg tablet 10 mg PO DAILY aspirin 81 mg tablet,delayed release (DR/EC) 81 mg PO QAM cholecalciferol (vitamin D3) 25 mcg (1,000 unit) capsule 25 mcg PO DAILY (DME) 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 Technician Brace See Rx Instructions .Route .MEDSUPPLY Qty: 1 0RF Rx Instructions: As directed promethazine-DM 6.25-15 mg/5 mL syrup 5 - 10 ml PO Q6H PRN (Reason: cough) Qty: 473 1RF lisinopril 40 mg tablet 40 mg PO BID Qty: 180 3RF amlodipine 5 mg tablet 5 mg PO DAILY Qty: 90 3RF prednisone 10 mg tablet 10 mg PO DAILY Qty: 20 1RF celecoxib 200 mg capsule 200 mg PO BID Qty: 180 3RF doxycycline hyclate 100 mg tablet 100 mg PO BID Qty: 14 0RF sucralfate [Carafate] 1 gram tablet 1 g PO BID Qty: 180 1RF carisoprodol [Soma] 350 mg tablet 350 mg PO TID PRN (Reason: muscle pain) Qty: 60 2RF levothyroxine 25 mcg tablet See Rx Instructions .ROUTE .COMPLEX Qty: 30 0RF Dose Instruction: TAKE 1 TABLET BY MOUTH DAILY Rx Instructions: TAKE 1 TABLET BY MOUTH DAILY quercetin 500 mg Capsule 500 mg PO DAILY zinc acetate 50 mg (zinc) Capsule 50 mg PO DAILY alfalfa 650 mg Tablet 650 mg PO DAILY Elderberry Gummies 2 tab PO DAILY levothyroxine 25 mcg tablet 25 mcg PO DAILY Referrals: Tay Beauchamp FNP [Primary Care Provider] - Coding Level of Care Code ED News Intern for Sarah Morton
[2024-05-01 16:46] LABS: Urine Appearance Clear (CLEAR); Urine Color Yellow (Yellow); pH Urine 8 (5-7)
[2024-05-01 16:47] LABS: Add Urine Culture? No; Add Urine Microscopic? YES; Bacteria Urine TRACE /hpf; Bilirubin Urine Neg (Negative); Blood Urine Trace (Negative); Glucose Urine UA 2+ (Normal); Ketones Urine 1+ (Negative); Leukocyte Esterase Urine Negative (Negative); Nitrate Urine Negative (Negative); Protein Urine 1+ (Negative); RBC Urine 0-4 /hpf (0-2); Specific Gravity, Urine 1.015 (1.005-1.030); Urobilinogen Urine Norm (Negative)
[2024-05-01] MEDS: pantoprazole 40 mg SDV IVP (16:49)
[2024-05-01] MEDS: ondansetron 2 mg/ML SDV 2 mL 4 MG IVP ×2 (16:50→19:02)
[2024-05-01] MEDS: sodium chloride 0.9% 1,000 ML 999 ML IV (16:50)
--- NOTE | 2024-05-01 18:24 | CTR_ITS ---
PROCEDURE INFORMATION: Exam: CT Abdomen And Pelvis With Contrast Exam date and time: 05/01/2024 6:33 PM Age: 74 years old Clinical indication: Nausea and vomiting; Abdominal pain; Prior surgery; Surgery date: 6+ months; Surgery type: Bilat lisset; Patient HX: C/O epigastric pain with n/v. Known ventral hernia. TECHNIQUE: Imaging protocol: Computed tomography of the abdomen and pelvis with contrast. Radiation optimization: All CT scans at this facility use at least one of these dose optimization techniques: automated exposure control; mA and/or kV adjustment per patient size (includes targeted exams where dose is matched to clinical indication); or iterative reconstruction. Contrast material: OMNI 350; Contrast volume: 100 ml; Contrast route: INTRAVENOUS (IV); COMPARISON: CT abdomen pelvis wo con [id number] 02/08/2024 12:37 PM RADIATION DOSE METRICS: Total DLP (mGy-cm): 1108.12 FINDINGS: Liver: No acute findings Gallbladder and biliary ducts: No acute findings. Pancreas: No ductal dilation. Spleen: No splenomegaly. Adrenal glands: No mass. Kidneys and ureters: No stones or hydronephrosis. Stomach and bowel: No obstruction. Appendix: No evidence of appendicitis. Intraperitoneal space: No free air. No significant fluid collection. Vasculature: No abdominal aortic aneurysm. Lymph nodes: No enlarged lymph nodes. Urinary bladder: Obscured by hardware artifact. Reproductive: Obscured by hardware artifact. Bones/joints: Degenerative and postsurgical changes without acute findings.. Soft tissues: Large ventral abdominal wall hernia containing multiple loops of small bowel. There is trace free fluid within the hernia sac but no bowel dilation. 3.7 cm wide origin of the hernia sac, not significantly changed. CT/CT abdomen pelvis w con* [id number] IMPRESSION: Large ventral abdominal hernia containing nondilated loops of small bowel. Some free fluid within the hernia sac is new from prior exam, clinical correlation for any potential developing strangulation recommended.
[2024-05-01 18:29] LABS: Troponin 5 2HR 19.28 ng/L (0-10); Troponin 5 2HR Delta 2.28 ABS# (0-10)
[2024-05-01] MEDS: iohexol 350 mg/mL 500 mL Btl (per mL) IV (18:35)
--- NOTE | 2024-05-01 19:22 | ECG_ITS ---
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 Measurements Intervals [place] Rate: 81 P: 50 NV: 175 QRS: -47 QRSD: 158 T: 29 QT: 402 QTc: 467 Interpretive Statements SINUS RHYTHM WITH marked sinus arrhythmia LEFT AXIS DEVIATION [QRS AXIS < -30] RIGHT BUNDLE BRANCH BLOCK [120+ ms QRS DURATION, UPRIGHT V1, 40+ ms S IN I/aVL/V4/V5/V6] Compared to ECG 05/01/2024 16:33:29 No significant change Electronically Signed On 05-02-2024 13:29:10 CDT by Lanre Hairston M.D. [id number]
[2024-05-01] MEDS: nitroglycerin 0.4 mg sublingual Tablet SUBLINGUAL (19:24)
[2024-05-01 19:42] LABS: NT Pro B Type Natriuretic Pept 930 pg/mL (0-125)
[2024-05-01] MEDS: morphine 4 mg/mL SDV 1 mL 2 MG IVP (20:28)
[2024-05-01] MEDS: prochlorperazine 10 mg/2 mL Inj 5 MG IVP (20:28)
[2024-05-01 20:54] LABS: Lactic Sepsis W/Reflex 3.3 mmol/L (0.5-2.2)
[2024-05-01] MEDS: heparin 5,000 unit/mL INJ 1 mL 5000 UNIT SUBCUT (20:58)
[2024-05-01] MEDS: nitroglycerin 1 gm/inch oint Pkt 1 INCH TOPICAL (20:58)
[2024-05-01 21:10] LABS: C Reactive Protein 4.9 mg/L (0.0-4.9)
[2024-05-01 21:17] LABS: Procalcitonin 0.03 ng/mL (0-0.5)
[2024-05-01] MEDS: sodium chloride 0.9% 1,000 ML 125 ML IV (22:11)
[2024-05-01 22:19] LABS: Reflex Lactate Order REFLEX LACTIC ORDERD
--- NOTE | 2024-05-01 22:46 | P.HP_ITS ---
Providers/Chief Complaint 2 Admitting Physician: Pam Schuler MD Primary Care Provider: Tay Beauchamp Chief Complaint: n/v, chills, abd pain History of Present Illness Flower Estrada is a 74 year old female Past medical history of known hiatal hernia, large ventral abdominal hernia, thyroid nodule, arthritis of knee in the past presented to the hospital today with complaint of nausea and vomiting. He states she has a known history of hiatal hernia and GERD and she takes omeprazole at home however was switched to sucralfate recently. She was asked to lose weight in the past as treatment of her hiatal hernia however she says that is easier said than done. She says last time she was in the hospital she was given GI cocktail which helped however today she has not received that medication yet. She says she has taken root beer at home and some baking soda however that has not taken care of the belching, burping, abdominal fullness, nausea. She does complain of epigastric pain from time to time with significant heartburn and also gets diaphoretic at the same time. Does not at low endorse any shortness of breath or palpitations associated with that. Blood pressure on arrival to 223 systolic initially. Initial troponin 17, 2- hour troponin 19, BNP 900. Patient continues to have complaint of heartburn. General surgery was also consulted. ER doctor gave the patient 1 L normal saline bolus, nitroglycerin, placed on Nitropaste. When seen patient states she is comfortable at this time and no longer having any kind of nausea however is also denying any pain at this time. Medications/Allergies Home Medications Medication Instructions Recorded Confirmed Last Taken Type aspirin 81 mg tablet,delayed 81 mg PO QA 09/18/21 05/01/24 02/07/24 History release cholecalciferol (vitamin D3) 25 25 mcg PO BID 09/18/21 05/01/24 02/07/24 History mcg (1,000 unit) capsule loratadine 10 mg tablet (Claritin) 10 mg PO DAILY 09/18/21 05/01/24 02/07/24 History quercetin 500 mg capsule 500 mg PO DAILY 09/23/22 05/01/24 02/07/24 History Manufacturer'S Representative Brace #1 ea 06/03/23 05/01/24 Unknown Rx Elderberry Gummies 2 tab PO DAILY 10/21/23 05/01/24 02/07/24 History alfalfa 650 mg tablet 650 mg PO DAILY 10/21/23 05/01/24 02/07/24 History zinc acetate 50 mg (zinc) capsule 50 mg PO DAILY 10/21/23 05/01/24 02/07/24 History carisoprodol 350 mg tablet (Soma) 350 mg PO TID PRN muscle pain #60 02/12/24 05/01/24 Unknown Rx tabs sucralfate 1 gram tablet (Carafate) 1 g PO BID #180 tabs 02/18/24 05/01/24 Unknown Rx lisinopril 40 mg tablet 40 mg PO BID #180 tabs 03/03/24 05/01/24 Unknown Rx celecoxib 200 mg capsule 200 mg PO BID #180 caps 03/23/24 05/01/24 Unknown Rx levothyroxine 25 mcg tablet See Rx Instructions .Route 04/26/24 05/01/24 Unknown Rx .COMPLEX #30 tabs azelastine 137 mcg (0.1 %) nasal 2 spray intranasal BID 05/01/24 05/01/24 Unknown History spray fexofenadine 180 mg tablet 180 mg PO DAILY 05/01/24 05/01/24 Unknown History (Allergy Relief (fexofenadine)) fluticasone propionate 50 2 spray intranasal DAILY 05/01/24 05/01/24 Unknown History mcg/actuation nasal spray,suspension Allergies Allergy/AdvReac Type Severity Reaction Status Date / Time Sulfa (Sulfonamide Allergy Unknown Verified 04/08/24 10:56 Antibiotics) sulfamethoxazole Allergy Unknown Verified 04/08/24 10:56 [From Bactrim] trimethoprim [From Bactrim] Allergy Unknown Verified 04/08/24 10:56 PFSH Acute 2 PFSH: Medical History Vitamin D deficiency Hypertension Surgical History History of hip replacement Family History Father Heart failure Degenerative disc disease, lumbar Muscle spasm Mother Congestive heart failure (CHF) History of right hip replacement Cataract (lens) fragments in eye following cataract surgery Social History Smoking and tobacco/nicotine status: never used tobacco/nicotine Second hand smoke exposure: No Alcohol intake: never Substance/Drug Use: never Adopted: No Caregiver/support person: No Lives independently: No Household members: spouse Housing: House Marital status: Number of children: 1 Number of grandchildren: 1 Highest education level completed: High School Graduate service: No Current occupational status: retired Vitals/I&O/Wt Last Vital Signs Temp 98.4 F 05/01/24 20:40 Pulse 76 05/01/24 21:00 Resp 15 05/01/24 21:00 BP 210/94 05/01/24 21:00 Pulse Ox 95 05/01/24 21:00 O2 Del Method Room Air 05/01/24 21:00 05/01/24 05/01/24 05/01/24 06:59 14:59 22:59 Intake Total 1300 / 1300 Balance 1300 / 1300 Weight last 48 hrs Weight 113.398 kg Weight 113.398 kg Physical Exam 2 Narrative: General: Alert oriented x3, patient seen sitting up in bed appearing comfortable at this time holding I vomit bag in her hand. HEENT: Normocephalic, atraumatic, EOMI, breathing room air. Cardio: Regular rate rhythm, normal S1-S2, large body habitus difficult to auscultate Respiratory: Clear to auscultation bilaterally no wheezes no rhonchi GI: Abdomen soft, nontender, nondistended, bowel sounds + Extremities: No edema bilateral lower extremities Data 05/01/24 15:45 05/01/24 15:45 A&P Assessment and plan (1) Hypertension: Qualifiers: Hypertension type: unspecified Qualified Code(s): I10 - Essential (primary) hypertension (2) Hypertensive urgency: (3) Elevated troponin I level: (4) Subclinical hypothyroidism: (5) Intractable nausea and vomiting: (6) Ventral hernia: Qualifiers: Obstruction and gangrene presence: without obstruction or gangrene Qualified Code(s): K43.9 - Ventral hernia without obstruction or gangrene (7) Abdominal pain: Qualifiers: Abdominal location: generalized Qualified Code(s): R10.84 - Generalized abdominal pain (8) Epigastric pain: Plan #Hypertensive urgency #Dyspepsia #History of hiatal hernia? #Heartburn, epigastric pain at home #Elevated troponin, delta 2.2 #History of GERD #Arthritis, #Obesity #Ventral abdominal hernia, no evidence of incarceration ? Initial troponin 17, 2-hour troponin 19. Delta 2.2. 6-hour troponin pending at this time. Patient on Nitropaste at this time. Mild troponin leak may be secondary to high blood pressure. ? She does report a history of hiatal hernia however I do not see any evidence of that on chest x-ray or CT abdomen pelvis. She says she was asked to lose weight in the past but this was years ago. He says usually when she has GERD she takes Maalox, sucralfate recently and in the past been on antacid however this time it is not resolving. ? Blood pressure on arrival was 223 systolic however that has come down to 150s at this time. ? ACS cannot be ruled out at this time. Will await 6-hour troponin. EKG does not show any acute ischemic changes initially. Will check serial EKGs ? Ordered GI cocktail. ? General surgery consulted by ER. Patient may benefit from an EGD? ? I believe patient would also benefit from a stress test on Friday. We will check echocardiogram. ? Continue aspirin 81 at this time ? Continue lisinopril 40 daily ? If 6-hour delta troponin was elevated, patient patient has worsening symptoms please call cardiology. Otherwise we will plan for stress test on Friday. ? Will place on IV fluids normal saline 125 cc/h. DVT prophylaxis: Heparin SQ twice daily Full code Attestations 2 Medical Necessity Statement*: Greater than 2 midnight stay for management of dyspepsia, epigastric pain Diagnoses Hypertension I10 Hypertension type: unspecified Hypertensive urgency I16.0 Elevated troponin I level R79.89 Subclinical hypothyroidism E03.8 Intractable nausea and vomiting R11.2 Ventral hernia K43.9 Obstruction and gangrene presence: without obstruction or gangrene Abdominal pain R10.84 Abdominal location: generalized Epigastric pain R10.13
--- NOTE | 2024-05-01 23:21 | ECG_ITS ---
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 Measurements Intervals [place] Rate: 73 P: 63 MT: 148 QRS: 4 QRSD: 145 T: 42 QT: 457 QTc: 505 Interpretive Statements SINUS RHYTHM INDETERMINATE AXIS RIGHT BUNDLE BRANCH BLOCK [120+ ms QRS DURATION, UPRIGHT V1, 40+ ms S IN I/aVL/V4/V5/V6] Compared to ECG 05/01/2024 19:22:31 Indeterminate axis now present Left-axis deviation no longer present Electronically Signed On 05-02-2024 16:12:02 CDT by Lanre Hairston M.D. [id number]
[2024-05-01] MEDS: lidocaine 2% viscous 15 ML, aluminum-mag hydrox-simethicon 30 ML, sucralfate oral liq 1 GM PO (23:45)
--- NOTE | 2024-05-01 23:55 | PM.HP ---
Providers/Chief Complaint Admitting Physician: Pam Schuler MD Primary Care Provider: Tay Beauchamp Chief Complaint: n/v, chills, abd pain History of Present Illness Flower Estrada is a 74 year old female Medications/Allergies Home Medications Medication Instructions Recorded Confirmed Last Taken Type aspirin 81 mg tablet,delayed 81 mg PO QAM 09/18/21 05/01/24 02/07/24 History release cholecalciferol (vitamin D3) 25 25 mcg PO BID 09/18/21 05/01/24 02/07/24 History mcg (1,000 unit) capsule loratadine 10 mg tablet (Claritin) 10 mg PO DAILY 09/18/21 05/01/24 02/07/24 History quercetin 500 mg capsule 500 mg PO DAILY 09/23/22 05/01/24 02/07/24 History 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 #1 ea 06/03/23 05/01/24 Unknown Rx Elderberry Gummies 2 tab PO DAILY 10/21/23 05/01/24 02/07/24 History alfalfa 650 mg tablet 650 mg PO DAILY 10/21/23 05/01/24 02/07/24 History zinc acetate 50 mg (zinc) capsule 50 mg PO DAILY 10/21/23 05/01/24 02/07/24 History carisoprodol 350 mg tablet (Soma) 350 mg PO TID PRN muscle pain #60 02/12/24 05/01/24 Unknown Rx tabs sucralfate 1 gram tablet (Carafate) 1 g PO BID #180 tabs 02/18/24 05/01/24 Unknown Rx lisinopril 40 mg tablet 40 mg PO BID #180 tabs 03/03/24 05/01/24 Unknown Rx celecoxib 200 mg capsule 200 mg PO BID #180 caps 03/23/24 05/01/24 Unknown Rx levothyroxine 25 mcg tablet See Rx Instructions .Route 04/26/24 05/01/24 Unknown Rx .COMPLEX #30 tabs azelastine 137 mcg (0.1 %) nasal 2 spray intranasal BID 05/01/24 05/01/24 Unknown History spray fexofenadine 180 mg tablet 180 mg PO DAILY 05/01/24 05/01/24 Unknown History (Allergy Relief (fexofenadine)) fluticasone propionate 50 2 spray intranasal DAILY 05/01/24 05/01/24 Unknown History mcg/actuation nasal spray,suspension Allergies Allergy/AdvReac Type Severity Reaction Status Date / Time Sulfa (Sulfonamide Allergy Unknown Verified 04/08/24 10:56 Antibiotics) sulfamethoxazole Allergy Unknown Verified 04/08/24 10:56 [From Bactrim] trimethoprim [From Bactrim] Allergy Unknown Verified 04/08/24 10:56 PFSH Acute PFSH: Medical History Vitamin D deficiency Hypertension Surgical History History of hip replacement Family History Father Heart failure Degenerative disc disease, lumbar Muscle spasm Mother Congestive heart failure (CHF) History of right hip replacement Cataract (lens) fragments in eye following cataract surgery Social History Smoking and tobacco/nicotine status: never used tobacco/nicotine Second hand smoke exposure: No Alcohol intake: never Substance/Drug Use: never Adopted: No Caregiver/support person: No Lives independently: No Household members: spouse Housing: House Marital status: Number of children: 1 Number of grandchildren: 1 Highest education level completed: High School Graduate service: No Current occupational status: retired Vitals/I&O/Wt Last Vital Signs Temp 98.4 F 05/01/24 20:40 Pulse 76 05/01/24 21:00 Resp 15 05/01/24 21:00 BP 210/94 05/01/24 21:00 Pulse Ox 95 05/01/24 21:00 O2 Del Method Room Air 05/01/24 21:44 05/01/24 05/01/24 05/02/24 14:59 22:59 06:59 Intake Total 1300 / 1300 Balance 1300 / 1300 Weight last 48 hrs Weight 113.398 kg Weight 113.398 kg Data 05/01/24 15:45 05/01/24 15:45 Coding Level of Care Code Acute Code for Chg Praveen
[2024-05-02] VITALS (12 sets, daily range): BP systolic 108–178; BP diastolic 48–83; PULSE 56–79; RESP 12–22; TEMP 36.3–37; O2SAT 92–99
[2024-05-02 00:59] LABS: Lactic Acid level (Lactate) 4.3 mmol/L (0.5-2.2)
--- NOTE | 2024-05-02 02:20 | ECG_ITS ---
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 Measurements Intervals [place] Rate: 77 P: 84 WV: 162 QRS: -3 QRSD: 150 T: 50 QT: 454 QTc: 514 Interpretive Statements SINUS RHYTHM INDETERMINATE AXIS RIGHT BUNDLE BRANCH BLOCK [120+ ms QRS DURATION, UPRIGHT V1, 40+ ms S IN I/aVL/V4/V5/V6] Compared to ECG 05/01/2024 23:21:46 No significant changes Electronically Signed On 05-02-2024 16:10:14 CDT by Lanre Hairston M.D. [id number]
[2024-05-02 05:43] LABS: Basophils % 0.3 %; Hematocrit 43.2 % (36-47); Lymphocytes # 1.1 10^3/uL (0.8-4.8); Lymphocytes % 12.3 %; Mean Corpuscular HGB Conc 32.4 g/dL (30-55); Mean Corpuscular Hemoglobin 28.6 pg (27-33); Mean Corpuscular Volume 88.3 fl (85-98); Mean Platelet Volume 10.9 fL (7.4-10.4); Monocytes # 0.7 10^3/uL (0.2-0.9); Monocytes % 7.6 %; Neutrophils # 6.88 10^3/uL (1.8-7.7); Neutrophils % 79.3 %; Nucleated Red Blood Cells % 0 %; Platelet Count 205 10^3/cmm (157-399); Red Blood Count 4.89 10^6/uL (3.85-5.65); White Blood Count 8.68 10^3/uL (3.29-11.43)
[2024-05-02] MEDS: levothyroxine 25 mcg Tablet PO (05:47)
[2024-05-02] MEDS: aspirin 81 mg EC Tablet PO (05:47)
[2024-05-02] MEDS: sodium chloride 0.9% 1,000 ML 75 ML IV (05:49)
--- NOTE | 2024-05-02 06:00 | USCV_ITS ---
Flower Estrada Age: 74 Gender: F : 1950 Exam Date: 05/02/2024 07:30 Ordering Phys: Pam Schuler MD Technologist: Brock Norton Exam Location: [facility] – [place] Indication: chest pain BP: 169 / 99 HR: 59 Rhythm: Sinus Technical Quality: Adequate MEASUREMENTS (Male / Female) Normal Values 2D ECHO LVOT Diameter 2.1 cm LV Ejection Fraction MOD 4C 72.0 % LV Ejection Fraction MOD 2C 77.5 % LV Ejection Fraction 2C AL 77.8 % LA Diameter 3.5 cm RA Systolic Volume 4C AL 59.0 ml RA Systolic Volume 4C MOD 61.9 ml LA Sys Volume AL 49.0 cm cubed LA Sys Volume Index AL 21.0 cm cubed/m squared Aorta at Sinotubular Diameter 2.0 cm IVC Diameter 1.7 cm M-MODE LA Ao Ratio MM 1.2 AV Cusp Separation MM 1.5 cm DOPPLER AV Peak Velocity 199.0 cm/s LVOT Peak Velocity 110.0 cm/s AV Area Cont Eq vti 1.8 cm squared AV Area Cont Eq pk 1.9 cm squared MV Peak Velocity 82.0 cm/s MV Area PHT 3.6 cm squared Mitral E to A Ratio 0.9 TR Peak Velocity 128.0 cm/s TR Peak Gradient 6.6 mmHg TR Mean Velocity 89.0 cm/s TR Mean Gradient 3.7 mmHg TR Velocity Time Integral 25.4 cm PV Peak Velocity 122.0 cm/s RV Ejection Time 0.4 s FINDINGS Left Ventricle Normal left ventricular size, systolic function and wall thickness, with no regional wall motion abnormalities. Left ventricular ejection fraction is estimated at 70%. Right Ventricle Normal right ventricular size and systolic function. Right Atrium Normal right atrial size. Left Atrium Mildly dilated left atrium. Mitral Valve Thickened mitral valve. Trace mitral valve regurgitation. Aortic Valve Thickened aortic valve. Trace aortic valve regurgitation. Tricuspid Valve Structurally normal tricuspid valve. Normal pulmonary artery systolic pressures Pulmonic Valve Structurally normal pulmonic valve. Pericardium No pericardial effusion. Aorta Normal size aortic root and proximal ascending aorta. IVC Normal inferior vena cava. CONCLUSIONS Normal LV systolic function. LVEF estimated at 70%. Mildly dilated left atrium. No significant valvular abnormality noted. Normal right heart and pulmonary pressures. Lanre Hairston MD (Electronically Signed) Final Date: 02 May 2024 17:02 S
[2024-05-02 06:05] LABS: Lactic Sepsis W/Reflex 1.5 mmol/L (0.5-2.2)
[2024-05-02 07:28] LABS: Alanine Aminotransferase 16 U/L (0-33); Albumin Level 3.8 g/dL (3.5-5.2); Alkaline Phosphatase 93 U/L (35-105); Anion Gap 17.4 (5-19); Aspartate Amino Transferase 18 U/L (0-32); Blood Urea Nitrogen 14 mg/dL (8-23); Calcium 8.2 mg/dL (8.5-10.5); Carbon Dioxide 21 mmol/L (22-29); Chloride 101 mmol/L (98-107); Globulin 3.2 g/dL (1.3-4.6); Glucose 122 mg/dL (65-115); Magnesium 1.8 mg/dL (1.7-2.3); Osmolality Calculated 284 mOsm/kg (285-295); Potassium 3.4 mmol/L (3.5-5.1); Sodium 136 mmol/L (136-145); Total Bilirubin 0.5 mg/dL (0.15-1.2)
--- NOTE | 2024-05-02 08:08 | P.CONIM_ITS ---
Providers/Reason For Consult 2 Consulting Physician/Specialty*: Dr. Bacilio Carrasco, DO/General surgery Reason for Consult*: Abdominal pain nausea and emesis, ventral hernia Attending Physician: Jimmie Combs MD Primary Care Provider: Tay Beauchamp History of Present Illness History of Present Illness Flower Estrada is a 74 year old female who presented to the hospital with intermittent epigastric abdominal pain nausea and emesis. She was also found to be in a hypertensive emergency with a small troponin bump. She reports that she gets frequent GERD symptoms for which she is taking sucralfate at home. She was previously taking omeprazole. Her hypertension has been controlled and her GI symptoms have resolved. She is no longer having any abdominal pain. CT the abdomen pelvis did reveal a large ventral hernia containing bowel loops and some fluid with no signs of obstruction. She denies any hematochezia and/or melena. Review of Systems 2 General: Reports: 10 or more systems reviewed and unremarkable except in HPI and below Medications/Allergies Home Medications Medication Instructions Recorded Confirmed Last Taken Type aspirin 81 mg tablet,delayed 81 mg PO QAM 09/18/21 05/01/24 02/07/24 History release cholecalciferol (vitamin D3) 25 25 mcg PO BID 09/18/21 05/01/24 02/07/24 History mcg (1,000 unit) capsule loratadine 10 mg tablet (Claritin) 10 mg PO DAILY 09/18/21 05/01/24 02/07/24 History quercetin 500 mg capsule 500 mg PO DAILY 09/23/22 05/01/24 02/07/24 History Director Product Management Brace #1 ea 06/03/23 05/01/24 Unknown Rx Elderberry Gummies 2 tab PO DAILY 10/21/23 05/01/24 02/07/24 History alfalfa 650 mg tablet 650 mg PO DAILY 10/21/23 05/01/24 02/07/24 History zinc acetate 50 mg (zinc) capsule 50 mg PO DAILY 10/21/23 05/01/24 02/07/24 History carisoprodol 350 mg tablet (Soma) 350 mg PO TID PRN muscle pain #60 02/12/24 05/01/24 Unknown Rx tabs sucralfate 1 gram tablet (Carafate) 1 g PO BID #180 tabs 02/18/24 05/01/24 Unknown Rx lisinopril 40 mg tablet 40 mg PO BID #180 tabs 03/03/24 05/01/24 Unknown Rx celecoxib 200 mg capsule 200 mg PO BID #180 caps 03/23/24 05/01/24 Unknown Rx levothyroxine 25 mcg tablet See Rx Instructions .Route 04/26/24 05/01/24 Unknown Rx .COMPLEX #30 tabs azelastine 137 mcg (0.1 %) nasal 2 spray intranasal BID 05/01/24 05/01/24 Unknown History spray fexofenadine 180 mg tablet 180 mg PO DAILY 05/01/24 05/01/24 Unknown History (Allergy Relief (fexofenadine)) fluticasone propionate 50 2 spray intranasal DAILY 05/01/24 05/01/24 Unknown History mcg/actuation nasal spray,suspension Allergies Allergy/AdvReac Type Severity Reaction Status Date / Time Sulfa (Sulfonamide Allergy Unknown Verified 04/08/24 10:56 Antibiotics) sulfamethoxazole Allergy Unknown Verified 04/08/24 10:56 [From Bactrim] trimethoprim [From Bactrim] Allergy Unknown Verified 04/08/24 10:56 Current Medications Generic Name Dose Route Start Last Admin Trade Name Freq PRN Reason Stop Dose Admin Aspirin 81 mg 05/02/24 06:00 05/02/24 05:47 Aspirin 81 Mg Ec Tablet PO 81 mg QAM TEENA Administration Heparin Sodium (Porcine) 5,000 unit 05/01/24 20:45 05/01/24 20:58 Heparin 5,000 Unit/Ml Inj 1 Ml SUBCUT 5,000 unit Q12H TEENA Administration Sodium Chloride 1,000 mls @ 75 mls/hr 05/02/24 00:45 05/02/24 05:49 Sodium Chloride 0.9% IV 75 mls/hr .[id number] TEENA Administration Levothyroxine Sodium 25 mcg 05/02/24 06:30 05/02/24 05:47 Levothyroxine 25 Mcg Tablet PO 25 mcg 0630 TEENA Administration Levothyroxine Sodium 25 mcg 05/02/24 06:30 05/02/24 05:47 Levothyroxine 25 Mcg Tablet PO Not Given 0630 TEENA Pantoprazole Sodium 40 mg 05/01/24 20:45 05/01/24 21:05 Pantoprazole 40 Mg Sdv IVP Not Given Q24H TEENA PFSH Acute 2 PFSH: Medical History Vitamin D deficiency Hypertension Surgical History History of hip replacement Family History Father Heart failure Degenerative disc disease, lumbar Muscle spasm Mother Congestive heart failure (CHF) History of right hip replacement Cataract (lens) fragments in eye following cataract surgery Social History Smoking and tobacco/nicotine status: never used tobacco/nicotine Second hand smoke exposure: No Alcohol intake: never Substance/Drug Use: never Adopted: No Caregiver/support person: No Lives independently: No Household members: spouse Housing: House Marital status: Number of children: 1 Number of grandchildren: 1 Highest education level completed: High School Graduate service: No Current occupational status: retired Vitals/I&O/Wt Last Vital Signs Temp 98.4 F 05/02/24 04:00 Pulse 66 05/02/24 06:00 Resp 13 05/02/24 04:00 BP 169/79 05/02/24 04:00 Pulse Ox 98 05/02/24 04:00 O2 Del Method Room Air 05/02/24 04:00 05/01/24 05/02/24 05/02/24 22:59 06:59 14:59 Intake Total 1300 / 1300 1300 / 2600 Balance 1300 / 1300 1300 / 2600 Weight last 48 hrs Weight 254 lb Weight 250 lb Weight 250 lb Physical Exam 2 Narrative: General : Patient is well developed , no acute distress, oriented x3 Head : Normal cephalic, a-traumatic. Ears : Pinnae and external canal are normal. Hearing is normal. Eyes : PERRLA, Sclera and injection are normal. No conjunctival discharge. Nose : Mucous membranes are without erythema. Throat : buccal mucosa is normal, gums are without significant recession or hypertrophy. Lungs : Equal chest rise bilaterally, no use of accessory muscles, trachea is midline. Cor : Rate and rhythm are normal. Abdomen : Soft, ND, NT, no g/r, there is a large reducible ventral hernia Extremities : No edema, no cyanosis or clubbing, dorsalis pedis pulses are present bilaterally, non-tender to palpation of calves. Upper extremities are normal bilaterally. Back : non-tender to palpation, no CVA tenderness. Neuro : CN II - XII intact, Upper and lower extremities have equal and full strength Data 05/02/24 05:24 05/02/24 05:24 A&P Assessment and plan (1) Abdominal pain: Qualifiers: Abdominal location: generalized Qualified Code(s): R10.84 - Generalized abdominal pain (2) Ventral hernia: Qualifiers: Obstruction and gangrene presence: without obstruction or gangrene Qualified Code(s): K43.9 - Ventral hernia without obstruction or gangrene (3) Chronic GERD: (4) Intractable nausea and vomiting: (5) Epigastric pain: Plan EGD The risks and benefits of the procedure, including bleeding, infection, intestinal perforation requiring surgery, missed lesion were explained to the patient. The patient is understanding of the risks and wishes to proceed. If she remains stable, I will be happy to repair her ventral hernia on Friday Laparoscopic ventral hernia repair with mesh The risks and benefits of the procedure, including but not limited to, bleeding, infection, mesh infection requiring mesh excision antibiotic therapy and repeat surgery, damage surrounding structures, conversion to an open procedure, scar, numbness, pain, and/or recurrence were explained to the patient. Patient is understanding of the risks and wishes to proceed. Coding Level of Care Code 13226 Diagnoses Abdominal pain R10.84 Abdominal location: generalized Ventral hernia K43.9 Obstruction and gangrene presence: without obstruction or gangrene Chronic GERD K21.9 Intractable nausea and vomiting R11.2 Epigastric pain R10.13
--- NOTE | 2024-05-02 08:17 | P.ANESASSM_ITS ---
Pre-Anesthetic Assessment Height/Weight: Height 1.6 m Weight 115.212 kg Temp Pulse Resp BP Pulse Ox O2 Del Method 97.3 F L 56 L 15 158/71 96 Nasal Cannula 05/02/24 08:00 05/02/24 08:00 05/02/24 08:00 05/02/24 08:00 05/02/24 08:00 05/02/24 08:00 Operation Date: 05/02/24 08:30 Proposed Procedures p EGD(Not Applicable) - Bacilio Carrasco, Social No alcohol and No tobacco Exam alert, oriented x 3, clear to auscultation bilaterally and regular rate & rhythm Airway Cervical ROM: Other (limited extension) Mallampati: Class III Pulmonary Exertional Dyspnea CV/HEM Coronary Artery Disease and Hypertension None reported Hepatic None reported GI Gastroesophageal Reflux Disease Metabolic Thyroid Disease Anesthetic Plan ASA status: 3 Anesthesia: MAC Medications/Allergies Home Medications Medication Instructions Recorded Confirmed Last Taken Type aspirin 81 mg tablet,delayed 81 mg PO QAM 09/18/21 05/01/24 02/07/24 History release cholecalciferol (vitamin D3) 25 25 mcg PO BID 09/18/21 05/01/24 02/07/24 History mcg (1,000 unit) capsule loratadine 10 mg tablet (Claritin) 10 mg PO DAILY 09/18/21 05/01/24 02/07/24 History quercetin 500 mg capsule 500 mg PO DAILY 09/23/22 05/01/24 02/07/24 History Director Diversity Brace #1 ea 06/03/23 05/01/24 Unknown Rx Elderberry Gummies 2 tab PO DAILY 10/21/23 05/01/24 02/07/24 History alfalfa 650 mg tablet 650 mg PO DAILY 10/21/23 05/01/24 02/07/24 History zinc acetate 50 mg (zinc) capsule 50 mg PO DAILY 10/21/23 05/01/24 02/07/24 History carisoprodol 350 mg tablet (Soma) 350 mg PO TID PRN muscle pain #60 02/12/24 05/01/24 Unknown Rx tabs sucralfate 1 gram tablet (Carafate) 1 g PO BID #180 tabs 02/18/24 05/01/24 Unknown Rx lisinopril 40 mg tablet 40 mg PO BID #180 tabs 03/03/24 05/01/24 Unknown Rx celecoxib 200 mg capsule 200 mg PO BID #180 caps 03/23/24 05/01/24 Unknown Rx levothyroxine 25 mcg tablet See Rx Instructions .Route 04/26/24 05/01/24 Unknown Rx .COMPLEX #30 tabs azelastine 137 mcg (0.1 %) nasal 2 spray intranasal BID 05/01/24 05/01/24 Unknown History spray fexofenadine 180 mg tablet 180 mg PO DAILY 05/01/24 05/01/24 Unknown History (Allergy Relief (fexofenadine)) fluticasone propionate 50 2 spray intranasal DAILY 05/01/24 05/01/24 Unknown History mcg/actuation nasal spray,suspension Allergies Allergy/AdvReac Type Severity Reaction Status Date / Time Sulfa (Sulfonamide Allergy Unknown Verified 04/08/24 10:56 Antibiotics) sulfamethoxazole Allergy Unknown Verified 04/08/24 10:56 [From Bactrim] trimethoprim [From Bactrim] Allergy Unknown Verified 04/08/24 10:56 Current Medications Generic Name Dose Route Start Last Admin Trade Name Freq PRN Reason Stop Dose Admin Aspirin 81 mg 05/02/24 06:00 05/02/24 05:47 Aspirin 81 Mg Ec Tablet PO 81 mg QAM TEENA Administration Heparin Sodium (Porcine) 5,000 unit 05/01/24 20:45 05/01/24 20:58 Heparin 5,000 Unit/Ml Inj 1 Ml SUBCUT 5,000 unit Q12H TEENA Administration Sodium Chloride 1,000 mls @ 75 mls/hr 05/02/24 00:45 05/02/24 05:49 Sodium Chloride 0.9% IV 75 mls/hr .[id number] TEENA Administration Levothyroxine Sodium 25 mcg 05/02/24 06:30 05/02/24 05:47 Levothyroxine 25 Mcg Tablet PO 25 mcg 0630 TEENA Administration Levothyroxine Sodium 25 mcg 05/02/24 06:30 05/02/24 05:47 Levothyroxine 25 Mcg Tablet PO Not Given 0630 TEENA Pantoprazole Sodium 40 mg 05/01/24 20:45 05/01/24 21:05 Pantoprazole 40 Mg Sdv IVP Not Given Q24H TEENA PFSH Anesthesia Medical History Vitamin D deficiency Hypertension Surgical History History of hip replacement Family History Father Heart failure Degenerative disc disease, lumbar Muscle spasm Mother Congestive heart failure (CHF) History of right hip replacement Cataract (lens) fragments in eye following cataract surgery Social History Smoking and tobacco/nicotine status: never used tobacco/nicotine Second hand smoke exposure: No Alcohol intake: never Substance/Drug Use: never Adopted: No Caregiver/support person: No Lives independently: No Household members: spouse Housing: House Marital status: Number of children: 1 Number of grandchildren: 1 Highest education level completed: High School Graduate service: No Current occupational status: retired Data Anesthesia 05/02/24 05:24 05/02/24 05:24 Short CBC 05/01/24 05/02/24 Range/Units 15:45 05:24 WBC 11.17 8.68 (3.29-11.43) 10^3/uL Hgb 16.60 14.00 (11.27-16.99) g/dL Hct 50.5 H 43.2 (36-47) % MCV 88.6 88.3 (85-98) fl Plt Count 188 205 (157-399) 10^3/cmm Neut % (Auto) 90.6 79.3 % Neut # (Auto) 10.12 H 6.88 (1.8-7.7) 10^3/uL BMP 05/01/24 05/02/24 15:45 05:24 Sodium 135 L 136 Potassium 4.0 3.4 L Chloride 95 L 101 Carbon Dioxide 25 21 L BUN 11 14 Creatinine 0.7 0.8 Glucose 180 H 122 H Calcium 9.2 8.2 L Cardiac Enzymes 05/01/24 05/01/24 Range/Units 15:45 18:00 Troponin T Baseline 17 H (0-10) ng/L Troponin T 120 Minute 19.28 H (0-10) ng/L Delta Troponin T 2.28 (0-10) ABS# NT-Pro-B Natriuret Pep 930 H (0-125) pg/mL Liver Function 05/01/24 05/02/24 Range/Units 15:45 05:24 Total Bilirubin 0.5 0.5 (0.15-1.2) mg/dL AST 23 18 (0-32) U/L ALT 23 16 (0-33) U/L Alkaline Phosphatase 121 H 93 (35-105) U/L Albumin 4.8 3.8 (3.5-5.2) g/dL Urine 05/01/24 Range/Units 15:28 Urine Color Yellow (Yellow) Urine Appearance Clear (CLEAR) Urine pH 8 H (5-7) Ur Specific [place] 1.015 (1.005-1.030) Urine Protein 1+ H (Negative) Urine Glucose (UA) 2+ H (Normal) Urine Ketones 1+ H (Negative) Urine Nitrate Negative (Negative) Urine Bilirubin Neg (Negative) Ur Leukocyte Esterase Negative (Negative) Urine RBC 0-4 H (0-2) /hpf Urine WBC None (0-5) /hpf Coags 05/01/24 05/01/24 15:45 15:45 C-Reactive Protein 5.0 H 4.9 Cardiac Studies: 2 No Data to Display
--- NOTE | 2024-05-02 08:47 | ANE.PACU2 ---
Inpatient post-anesthesia follow up: Airway intact: Yes Vital signs: Temperature 97.5 F Pulse Rate 59 Respiratory Rate 12 Blood Pressure 161/75 Pulse Oximetry 99 Oxygen Delivery Me thod Nasal Cannula Oxygen Flow Rate 2 Fraction of Inspir ed Oxygen Hydration adequate: Yes Nausea and vomiting: No Pain level: controlled Mental status: Baseline Additional Comments: no apparent anesthetic complications noted
[2024-05-02] MEDS: amlodipine 5 mg Tablet PO (09:46)
[2024-05-02] MEDS: sucralfate 1 gm Tablet PO ×2 (09:47→18:46)
[2024-05-02] MEDS: lisinopril 20 mg Tablet 40 MG PO (09:47)
[2024-05-02] MEDS: heparin 5,000 unit/mL INJ 1 mL 5000 UNIT SUBCUT ×2 (09:47→21:22)
--- NOTE | 2024-05-02 15:37 | P.PN_ITS ---
Subjective 2 Subjective: Patient was seen this morning, she continues to complain of acid reflux, does feel nauseous, no vomiting, no chest pain, no shortness of breath, Vitals/I&O/Wt Last Vital Signs Temp 98.0 F 05/02/24 11:50 Pulse 62 05/02/24 11:50 Resp 16 05/02/24 11:50 BP 178/81 05/02/24 11:50 Pulse Ox 94 05/02/24 11:50 O2 Del Method Room Air 05/02/24 11:50 O2 Flow Rate 2 05/02/24 08:31 05/02/24 05/02/24 05/02/24 06:59 14:59 22:59 Intake Total 1300 / 2600 240 / 240 Output Total 650 / 650 Balance 1300 / 2600 -410 / -410 Weight last 48 hrs Weight 115.212 kg Weight 113.398 kg Weight 113.398 kg Physical Exam 2 Const: COMMON NORMALS: no acute distress and patient oriented x3 Resp: COMMON NORMALS: normal respiratory effort, No retractions, No use of accessory muscles and clear to auscultation bilaterally AUSCULTATION: clear to auscultation bilaterally Cardio: COMMON NORMALS: regular rate, regular rhythm, S1 normal heart sound present and S2 normal heart sound present RATE: regular rate RHYTHM: r egular rhythm HEART SOUNDS: S1 normal heart sound present and S2 normal heart sound present GI: COMMON NORMALS: Normal to inspection, nondistended, normoactive bowel sounds present and non-tender Extremity: COMMON NORMALS: no pedal edema Neuro: COMMON NORMALS: patient oriented x3 Psych: COMMON NORMALS: mental status grossly normal Data 05/02/24 05:24 05/02/24 05:24 A&P Assessment and plan (1) Hypertension: Qualifiers: Hypertension type: unspecified Qualified Code(s): I10 - Essential (primary) hypertension (2) Hypertensive urgency: (3) Elevated troponin I level: (4) Subclinical hypothyroidism: (5) Intractable nausea and vomiting: (6) Ventral hernia: Qualifiers: Obstruction and gangrene presence: without obstruction or gangrene Qualified Code(s): K43.9 - Ventral hernia without obstruction or gangrene (7) Abdominal pain: Qualifiers: Abdominal location: generalized Qualified Code(s): R10.84 - Generalized abdominal pain (8) Epigastric pain: Plan #Hypertensive urgency #Dyspepsia #History of hiatal hernia? #Heartburn, epigastric pain at home #Elevated troponin, #History of GERD #Arthritis, #Obesity #Ventral abdominal hernia, no evidence of incarceration ? Initial troponin 17, 2-hour troponin 19. Delta 2.2. EKG no acute ST-T wave changes -Patient denies any chest pain, no shortness of breath, no cardiovascular history, cardiac echocardiogram pending -Likely type II NSTEMI related to hypertensive urgency however could rule out type I, given age, medical history, nonetheless patient denies any chest pain or shortness of breath, will monitor ? As patient is chest pain-free, no shortness of breath, no significant EKG changes, no significant troponin leak, no acute need for stress testing for now, will await cardiac echocardiogram ? Blood pressure on arrival was 223 systolic however that has come down to 150s at this time. ? Ordered GI cocktail. ? General surgery consulted by ER. Patient may benefit from an EGD ? Continue aspirin 81 at this time ? Continue lisinopril 40 daily ? Stop IV fluids DVT prophylaxis: Heparin SQ twice daily Full code Attestations 2 Medical Necessity Statement*: Patient requires hospitalization for hypertensive urgency, dyspepsia, heartburn, plans for EGD, blood pressure control Diagnoses Hypertension I10 Hypertension type: unspecified Hypertensive urgency I16.0 Elevated troponin I level R79.89 Subclinical hypothyroidism E03.8 Intractable nausea and vomiting R11.2 Ventral hernia K43.9 Obstruction and gangrene presence: without obstruction or gangrene Abdominal pain R10.84 Abdominal location: generalized Epigastric pain R10.13
[2024-05-02] MEDS: pantoprazole 40 mg SDV IVP (18:46)
[2024-05-02] MEDS: chlorthalidone 25 mg Tablet PO (18:47)
[2024-05-02] MEDS: acetaminophen 325 mg Tablet 650 MG PO (21:21)
[2024-05-03] VITALS (10 sets, daily range): BP systolic 145–174; BP diastolic 69–77; PULSE 62–80; RESP 12–28; TEMP 36.6–37.4; O2SAT 93–96
[2024-05-03] MEDS: pantoprazole 40 mg SDV IVP ×2 (02:50→14:01)
[2024-05-03] MEDS: aspirin 81 mg EC Tablet PO (06:12)
[2024-05-03] MEDS: levothyroxine 25 mcg Tablet PO (06:12)
[2024-05-03] MEDS: acetaminophen 325 mg Tablet 650 MG PO ×2 (08:48→21:23)
[2024-05-03] MEDS: chlorthalidone 25 mg Tablet PO (08:49)
[2024-05-03] MEDS: heparin 5,000 unit/mL INJ 1 mL 5000 UNIT SUBCUT ×2 (08:50→21:11)
[2024-05-03] MEDS: amlodipine 5 mg Tablet 10 MG PO (08:50)
[2024-05-03] MEDS: lisinopril 20 mg Tablet 40 MG PO (08:50)
[2024-05-03] MEDS: sucralfate 1 gm Tablet PO ×2 (08:50→17:30)
--- NOTE | 2024-05-03 14:20 | P.PN_ITS ---
Subjective 2 Subjective: Patient was seen this morning, she denies any chest pain, palpitations, shortness of breath, her acid reflux is more under control, she remains quite hypertensive, systolic blood pressures in the 170s, I have increased her lisinopril, added on chlorthalidone, increased her Norvasc, will add on clonidine, monitor blood pressure, plans on hiatal hernia repair tomorrow Vitals/I&O/Wt Last Vital Signs Temp 97.8 F 05/03/24 12:00 Pulse 65 05/03/24 12:00 Resp 19 H 05/03/24 12:00 BP 174/77 05/03/24 12:00 Pulse Ox 95 05/03/24 12:00 O2 Del Method Room Air 05/03/24 12:00 O2 Flow Rate 1 05/03/24 04:00 05/02/24 05/03/24 05/03/24 22:59 06:59 14:59 Intake Total 973.75 / 1213.75 360 / 360 Balance 973.75 / 563.75 360 / 360 Weight last 48 hrs Weight 116.891 kg Weight 115.212 kg Weight 113.398 kg Weight 113.398 kg Physical Exam 2 Const: COMMON NORMALS: no acute distress and patient oriented x3 Resp: COMMON NORMALS: normal respiratory effort, No retractions, No use of accessory muscles and clear to auscultation bilaterally AUSCULTATION: clear to auscultation bilaterally Cardio: COMMON NORMALS: regular rate, regular rhythm, S1 normal heart sound present and S2 normal heart sound present RATE: regular rate RHYTHM: r egular rhythm HEART SOUNDS: S1 normal heart sound present and S2 normal heart sound present GI: COMMON NORMALS: Normal to inspection, nondistended, normoactive bowel sounds present and non-tender Extremity: COMMON NORMALS: no pedal edema Neuro: COMMON NORMALS: patient oriented x3 Psych: COMMON NORMALS: mental status grossly normal Data 05/02/24 05:24 05/02/24 05:24 A&P Assessment and plan (1) Hypertension: Qualifiers: Hypertension type: unspecified Qualified Code(s): I10 - Essential (primary) hypertension (2) Hypertensive urgency: (3) Elevated troponin I level: (4) Subclinical hypothyroidism: (5) Intractable nausea and vomiting: (6) Ventral hernia: Qualifiers: Obstruction and gangrene presence: without obstruction or gangrene Qualified Code(s): K43.9 - Ventral hernia without obstruction or gangrene (7) Abdominal pain: Qualifiers: Abdominal location: generalized Qualified Code(s): R10.84 - Generalized abdominal pain (8) Epigastric pain: Plan #Hypertensive urgency #Dyspepsia #History of hiatal hernia? #Heartburn, epigastric pain at home #Elevated troponin, #History of GERD #Arthritis, #Obesity #Ventral abdominal hernia, no evidence of incarceration, plans for surgical intervention tomorrow ? Initial troponin 17, 2-hour troponin 19. Delta 2.2. EKG no acute ST-T wave changes -Patient denies any chest pain, no shortness of breath, no cardiovascular history, cardiac echocardiogram pending -Likely type II NSTEMI related to hypertensive urgency however could rule out type I, given age, medical history, nonetheless patient denies any chest pain or shortness of breath, will monitor ? As patient is chest pain-free, no shortness of breath, no significant EKG changes, no significant troponin leak, no acute need for stress testing for now, ? Blood pressure on arrival was 223 systolic however that has come down to 150s at this time. ? Ordered GI cocktail. ? General surgery consulted by ER. Underwent EGD, no significant abnormalities ? Continue aspirin 81 at this time ? Continue lisinopril 40 daily ? Cardiac echocardiogram no acute findings ? Requires optimization of blood pressure here in the hospital, will add on clonidine point 1 mg twice daily, Norvasc 10 mg daily, lisinopril 40 mg daily, added chlorthalidone 25 mg daily DVT prophylaxis: Heparin SQ twice daily Full code Attestations 2 Medical Necessity Statement*: Patient requires hospitalization for hypertensive urgency, requiring titration of blood pressure, plans on ventral hernia repair Diagnoses Hypertension I10 Hypertension type: unspecified Hypertensive urgency I16.0 Elevated troponin I level R79.89 Subclinical hypothyroidism E03.8 Intractable nausea and vomiting R11.2 Ventral hernia K43.9 Obstruction and gangrene presence: without obstruction or gangrene Abdominal pain R10.84 Abdominal location: generalized Epigastric pain R10.13
[2024-05-04] VITALS (20 sets, daily range): BP systolic 124–176; BP diastolic 52–87; PULSE 60–75; RESP 14–22; TEMP 36.1–36.9; O2SAT 93–99; BMI 44.8
[2024-05-04] MEDS: pantoprazole 40 mg SDV IVP ×3 (02:43→14:00)
[2024-05-04 04:28] LABS: Basophils % 0.6 %; Eosinophils # 0.2 10^3/uL (0.0-0.8); Eosinophils % 2.3 %; Hematocrit 45.1 % (36-47); Lymphocytes # 1.6 10^3/uL (0.8-4.8); Lymphocytes % 21.5 %; Mean Corpuscular HGB Conc 31.5 g/dL (30-55); Mean Corpuscular Hemoglobin 29.2 pg (27-33); Mean Corpuscular Volume 92.8 fl (85-98); Mean Platelet Volume 11.2 fL (7.4-10.4); Monocytes # 0.8 10^3/uL (0.2-0.9); Monocytes % 11.3 %; Neutrophils # 4.63 10^3/uL (1.8-7.7); Nucleated Red Blood Cells % 0 %; Platelet Count 153 10^3/cmm (157-399); Red Blood Count 4.86 10^6/uL (3.85-5.65); White Blood Count 7.24 10^3/uL (3.29-11.43)
[2024-05-04 05:01] LABS: Blood Urea Nitrogen 14 mg/dL (8-23); Calcium 8.5 mg/dL (8.5-10.5); Carbon Dioxide 20 mmol/L (22-29); Chloride 103 mmol/L (98-107); Creatinine Clr Calc Pharmacy 76.4819; Glucose 109 mg/dL (65-115); Osmolality Calculated 287 mOsm/kg (285-295); Sodium 138 mmol/L (136-145)
[2024-05-04 05:05] LABS: Anion Gap 18.3 (5-19); Potassium 3.3 mmol/L (3.5-5.1)
[2024-05-04] MEDS: aspirin 81 mg EC Tablet PO (05:55)
[2024-05-04] MEDS: levothyroxine 25 mcg Tablet PO (05:55)
--- NOTE | 2024-05-04 08:00 | PC.NURSE ---
received verbal order read back on 10 mg hydralazine IVP once for BP of 170/87. received verbal order to hold off on oral BP meds due to upcoming surgery at 10 am
--- NOTE | 2024-05-04 08:33 | P.PN_ITS ---
Vitals/I&O/Wt Last Vital Signs Temp 98.0 F 05/04/24 07:54 Pulse 66 05/04/24 07:54 Resp 16 05/04/24 07:54 BP 170/87 05/04/24 07:54 Pulse Ox 93 05/04/24 07:54 O2 Del Method Room Air 05/04/24 07:54 O2 Flow Rate 1 05/03/24 04:00 05/03/24 05/04/24 05/04/24 22:59 06:59 14:59 Intake Total 360 / 942 Balance 360 / 942 Weight last 48 hrs Weight 253 lb 1 oz Weight 257 lb 11.2 oz Data 05/04/24 04:08 05/04/24 04:08 A&P Assessment and plan (1) Abdominal pain: Qualifiers: Abdominal location: generalized Qualified Code(s): R10.84 - Generalized abdominal pain (2) Ventral hernia: Qualifiers: Obstruction and gangrene presence: without obstruction or gangrene Qualified Code(s): K43.9 - Ventral hernia without obstruction or gangrene (3) Chronic GERD: (4) Intractable nausea and vomiting: (5) Epigastric pain: Plan Status post EGD with normal findings To OR today for laparoscopic ventral hernia repair with mesh The risks and benefits of the procedure, including but not limited to, bleeding, infection, mesh infection requiring mesh excision antibiotic therapy and repeat surgery, damage surrounding structures, conversion to an open procedure, scar, numbness, pain, and/or recurrence were explained to the patient. Patient is understanding of the risks and wishes to proceed. Attestations 2 Medical Necessity Statement*: Per primary Coding Level of Care Code Acute Code for Chg Fwd Diagnoses Abdominal pain R10.84 Abdominal location: generalized Ventral hernia K43.9 Obstruction and gangrene presence: without obstruction or gangrene Chronic GERD K21.9 Intractable nausea and vomiting R11.2 Epigastric pain R10.13
[2024-05-04] MEDS: hyDRALAzine 20 mg/mL INJ 1 mL 10 MG IVP (08:55)
--- NOTE | 2024-05-04 09:03 | PC.NURSE ---
Taken to the OR via stretcher
--- NOTE | 2024-05-04 10:07 | ANES.PREANE2 ---
Pre-Anesthetic Assessment Height/Weight: Height 1.6 m Weight 114.787 kg Temp Pulse Resp BP Pulse Ox O2 Del Method O2 Flow Rate 98.0 F 66 16 170/87 93 Room Air 1 05/04/24 07:54 05/04/24 07:54 05/04/24 07:54 05/04/24 07:54 05/04/24 07:54 05/04/24 07:54 05/03/24 04:00 Operation Date: 05/02/24 08:30 Proposed Procedures p EGD(Not Applicable) - Bacilio Carrasco DO Operation Date: 05/04/24 10:05 Proposed Procedures p Laparoscopic Repair of incarcerated ventral hernia with mesh(Not Applicable) - Bacilio Carrasco DO Familial anesthetic complications: none Was Beta Charmaine taken within 24 hours: N/A Was Clonidine taken within 24 hours: N/A Last intake: Intake Last Liquid Date 05/03/24 Last Liquid Time 22:00 Last Solid Date 05/03/24 Last Solid Time 18:00 Social No alcohol and No tobacco Exam alert, oriented x 3, clear to auscultation bilaterally and regular rate & rhythm Airway Mallampati: Class III Dentition: other (pulled teeth) CV/HEM Coronary Artery Disease and Hypertension GI Gastroesophageal Reflux Disease Metabolic Morbid Obesity and Thyroid Disease Anesthetic Plan ASA status: 3 Anesthesia: General Risk of > 500 ml blood loss (7ml/kg in children): No Medications/Allergies Home Medications Medication Instructions Recorded Confirmed Last Taken Type aspirin 81 mg tablet,delayed 81 mg PO QAM 09/18/21 05/01/24 02/07/24 History release cholecalciferol (vitamin D3) 25 25 mcg PO BID 09/18/21 05/01/24 02/07/24 History mcg (1,000 unit) capsule loratadine 10 mg tablet (Claritin) 10 mg PO DAILY 09/18/21 05/01/24 02/07/24 History quercetin 500 mg capsule 500 mg PO DAILY 09/23/22 05/01/24 02/07/24 History Marine Equipment Engineer Brace #1 ea 06/03/23 05/01/24 Unknown Rx Elderberry Gummies 2 tab PO DAILY 10/21/23 05/01/24 02/07/24 History alfalfa 650 mg tablet 650 mg PO DAILY 10/21/23 05/01/24 02/07/24 History zinc acetate 50 mg (zinc) capsule 50 mg PO DAILY 10/21/23 05/01/24 02/07/24 History carisoprodol 350 mg tablet (Soma) 350 mg PO TID PRN muscle pain #60 02/12/24 05/01/24 Unknown Rx tabs sucralfate 1 gram tablet (Carafate) 1 g PO BID #180 tabs 02/18/24 05/01/24 Unknown Rx lisinopril 40 mg tablet 40 mg PO BID #180 tabs 03/03/24 05/01/24 Unknown Rx celecoxib 200 mg capsule 200 mg PO BID #180 caps 03/23/24 05/01/24 Unknown Rx levothyroxine 25 mcg tablet See Rx Instructions .Route 04/26/24 05/01/24 Unknown Rx .COMPLEX #30 tabs azelastine 137 mcg (0.1 %) nasal 2 spray intranasal BID 05/01/24 05/01/24 Unknown History spray fexofenadine 180 mg tablet 180 mg PO DAILY 05/01/24 05/01/24 Unknown History (Allergy Relief (fexofenadine)) fluticasone propionate 50 2 spray intranasal DAILY 05/01/24 05/01/24 Unknown History mcg/actuation nasal spray,suspension Allergies Allergy/AdvReac Type Severity Reaction Status Date / Time Sulfa (Sulfonamide Allergy Unknown Verified 04/08/24 10:56 Antibiotics) sulfamethoxazole Allergy Unknown Verified 04/08/24 10:56 [From Bactrim] trimethoprim [From Bactrim] Allergy Unknown Verified 04/08/24 10:56 Current Medications Generic Name Dose Route Start Last Admin Trade Name Freq PRN Reason Stop Dose Admin Acetaminophen 650 mg 05/01/24 20:37 05/03/24 21:23 Acetaminophen 325 Mg Tablet PO 650 mg Q6H PRN Administration Mild/Mod Pain Or Temp >/= 101 Amlodipine Besylate 10 mg 05/03/24 09:00 05/03/24 08:50 Amlodipine 5 Mg Tablet PO 10 mg DAILY TEENA Administration Aspirin 81 mg 05/02/24 06:00 05/04/24 05:55 Aspirin 81 Mg Ec Tablet PO 81 mg QAM TEENA Administration Chlorthalidone 25 mg 05/02/24 15:45 05/03/24 08:49 Chlorthalidone 25 Mg Tablet PO 25 mg DAILY TEENA Administration Heparin Sodium (Porcine) 5,000 unit 05/01/24 20:45 05/04/24 08:24 Heparin 5,000 Unit/Ml Inj 1 Ml SUBCUT Not Given Q12H TEENA Levothyroxine Sodium 25 mcg 05/02/24 06:30 05/04/24 05:55 Levothyroxine 25 Mcg Tablet PO 25 mcg 0630 TEENA Administration Lisinopril 40 mg 05/02/24 09:00 05/03/24 08:50 Lisinopril 20 Mg Tablet PO 40 mg DAILY TEENA Administration Pantoprazole Sodium 40 mg 05/02/24 14:15 05/04/24 02:43 Pantoprazole 40 Mg Sdv IVP 40 mg Q12H TEENA Administration Sucralfate 1 gm 05/02/24 09:00 05/04/24 08:23 Sucralfate 1 Gm Tablet PO Not Given BID TEENA PFSH Anesthesia Medical History Vitamin D deficiency Hypertension Surgical History History of hip replacement Family History Father Heart failure Degenerative disc disease, lumbar Muscle spasm Mother Congestive heart failure (CHF) History of right hip replacement Cataract (lens) fragments in eye following cataract surgery Social History Smoking and tobacco/nicotine status: never used tobacco/nicotine Second hand smoke exposure: No Alcohol intake: never Substance/Drug Use: never Adopted: No Caregiver/support person: No Lives independently: No Household members: spouse Housing: House Marital status: Number of children: 1 Number of grandchildren: 1 Highest education level completed: High School Graduate service: No Current occupational status: retired Data Anesthesia 05/04/24 04:08 05/04/24 04:08 Short CBC 05/04/24 Range/Units 04:08 WBC 7.24 (3.29-11.43) 10^3/uL Hgb 14.20 (11.27-16.99) g/dL Hct 45.1 (36-47) % MCV 92.8 (85-98) fl Plt Count 153 L (157-399) 10^3/cmm Neut % (Auto) 64.0 % Neut # (Auto) 4.63 (1.8-7.7) 10^3/uL BMP 05/04/24 04:08 Sodium 138 Potassium 3.3 L Chloride 103 Carbon Dioxide 20 L BUN 14 Creatinine 0.8 Glucose 109 Calcium 8.5 Cardiac Studies: Echocardiogram 05/02/24
[2024-05-04] MEDS: sodium chloride 0.9% 1,000 ML 30 ML IV (10:56)
[2024-05-04] MEDS: vancomycin 1,500 MG/300 ML PIGGYBACK 200 MG IV (10:57)
[2024-05-04] MEDS: lidocaine-epi 2% PF 1:200,000 20 mL SDV XX (12:02)
[2024-05-04] MEDS: BUPivacaine 0.25% INJ 10 mL INJECTION (12:02)
--- NOTE | 2024-05-04 12:40 | PM.OP ---
Operative Report Date of procedure: May 04, 2024 Pre-op diagnosis: Incarcerated ventral hernia Post-op diagnosis: same Surgeon: Bacilio Carrasco DO Procedure: Patient was wheeled into the operative room and placed on the OR table in a supine position. Abdomen was inspected prepped and draped in usual sterile fashion. Time-out was performed and all present were in agreement. A 15 blade scalp was used to make a 5 millimeter incision left upper quadrant. A Veress needle was placed into the incision and intra-abdominal insufflation was brought to 15 millimeters of mercury. A 12 millimeter trocar was placed into the left lower quadrant. There is a ventral hernia just superior to the umbilicus with a densely scarred hernia sac. Hernia sac was meticulously dissected out using laparoscopic ligature. Multiple loops of small bowel eventually came out. The energy but device was then used to cut out the hernia sac. Hernia defect measured 4.3 cm in diameter. A 6 inch ventral light mesh was placed into the abdomen and brought up through the umbilicus using an the Robert-Janiya. The mesh was then tacked in place in a double crown fashion. The skeleton of the mesh was removed via the left lower quadrant. The hernia sac was then removed from the abdomen via the left lower quadrant. The left lower quadrant port site was closed with an 0 Vicryl suture in a Robert-Janiya in a [id number] fashion. Incisions were closed with 4 O Vicryl in a subcuticular interrupted fashion. Skin glue was applied. A dressing that included cotton balls and a Tegaderm was placed over the umbilicus. Patient tolerated the procedure well.
--- NOTE | 2024-05-04 12:53 | P.DS_ITS ---
Discharge Providers Date of Admission: 05/01/24 22:45 Date of Discharge: May 04, 2024 Attending Provider at Admission: Pam Schuler MD Attending Provider at Discharge: Jimmie Combs MD Primary Care Provider: Tay Beauchamp Diagnoses at Discharge Discharge Diagnosis (1) Abdominal pain: Status: Acute Qualifiers: Abdominal location: generalized Qualified Code(s): R10.84 - Generalized abdominal pain (2) Ventral hernia: Status: Acute Qualifiers: Obstruction and gangrene presence: without obstruction or gangrene Qualified Code(s): K43.9 - Ventral hernia without obstruction or gangrene (3) Chronic GERD: Status: Acute (4) Intractable nausea and vomiting: Status: Acute (5) Epigastric pain: Status: Acute Reason for Visit Reason for Visit: n/v, chills, abd pain Hospital Course Hospital Course Flower Estrada is a 74 year old female Past medical history of known hiatal hernia, large ventral abdominal hernia, thyroid nodule, arthritis of knee in the past presented to the hospital today with complaint of nausea and vomiting. He states she has a known history of hiatal hernia and GERD and she takes omeprazole at home however was switched to sucralfate recently. She was asked to lose weight in the past as treatment of her hiatal hernia however she says that is easier said than done. She says last time she was in the hospital she was given GI cocktail which helped however today she has not received that medication yet. She says she has taken root beer at home and some baking soda however that has not taken care of the belching, burping, abdominal fullness, nausea. She does complain of epigastric pain from time to time with significant heartburn and also gets diaphoretic at the same time. Does not at low endorse any shortness of breath or palpitations associated with that. Blood pressure on arrival to 223 systolic initially. Initial troponin 17, 2- hour troponin 19, BNP 900. Patient continues to have complaint of heartburn. General surgery was also consulted. ER doctor gave the patient 1 L normal saline bolus, nitroglycerin, placed on Nitropaste. When seen patient states she is comfortable at this time and no longer having any kind of nausea however is also denying any pain at this time. Patient was admitted to [facility] for intractable nausea, vomiting, secondary to severe GERD, received acid reflux medications, nausea control, overall resolved. Discharged on Protonix, Carafate, with close follow-up with general surgery as outpatient She was also found to have a large ventral abdominal hernia containing nondilated loops of small bowel, no clinical evidence of incarceration, having adequate bowel movements, no bloody or black stools.For her ventral hernia, seen by general surgery, status post ventral hernia repair, will be discharged home with close follow-up with general surgery in 2 weeks, For her elevated troponins, no chest pain, no shortness of breath, likely type II NSTEMI, from hypertensive urgency. However cannot rule out underlying cardiac etiology, given age, risk factors continue home aspirin, monitor for chest pain if so come back to the emergency room. Follow-up with cardiology as outpatient for consideration of stress testing based upon clinical progress For her hypertensive urgency, she required titration of blood pressure medications as inpatient, will be discharged on chlorthalidone, Norvasc, lisinopril, clonidine as needed, follow-up with primary care provider as outpatient for titration of blood pressure Physical Exam Const: COMMON NORMALS: no acute distress and patient oriented x3 Resp: COMMON NORMALS: normal respiratory effort, No retractions, No use of accessory muscles and clear to auscultation bilaterally AUSCULTATION: clear to auscultation bilaterally Cardio: COMMON NORMALS: regular rate, regular rhythm, S1 normal heart sound present and S2 normal heart sound present RATE: regular rate RHYTHM: regular rhythm HEART SOUNDS: S1 normal heart sound present and S2 normal heart sound present GI: COMMON NORMALS: Normal to inspection, nondistended, normoactive bowel sounds present and non-tender Extremity: COMMON NORMALS: no calf tenderness and no pedal edema Neuro: COMMON NORMALS: patient oriented x3 Psych: COMMON NORMALS: mental status grossly normal Discharge Data Studies Completed and Pending Completed Studies During Hospitalization Category Date Time Status CT abdomen pelvis w con* [id number] Stat Cat Scan 05/01/24 18:24 Completed XR acute abdomen series [id number] Stat Exams 05/01/24 16:15 Completed CV. echo complete* [id number] Stat Ultrasound 05/02/24 06:00 Completed Pending at discharge Category Date Time Status Basic Metabolic Panel AM LABS Lab 05/05/24 04:00 Ordered Basic Metabolic Panel AM LABS Lab 05/06/24 04:00 Ordered Complete Blood Count w/Auto AM LABS Lab 05/05/24 04:00 Ordered Complete Blood Count w/Auto AM LABS Lab 05/06/24 04:00 Ordered Pathology: Surgical [PTH] Routine Pth 05/02/24 08:59 Received Radiology Impressions Chest/Abdomen X-ray 05/01/24 16:15 IMPRESSION: No acute cardiopulmonary process. IMPRESSION: Nonobstructive bowel gas pattern with no obvious pneumoperitoneum. Abdomen/Pelvis CT 05/01/24 18:24 IMPRESSION: Large ventral abdominal hernia containing nondilated loops of small bowel. Some free fluid within the hernia sac is new from prior exam, clinical correlation for any potential developing strangulation recommended. Laboratory Results WBC 7.24 10^3/uL (3.29-11.43) 05/04/24 04:08 RBC 4.86 10^6/uL (3.85-5.65) 05/04/24 04:08 Hgb 14.20 g/dL (11.27-16.99) 05/04/24 04:08 Hct 45.1 % (36-47) 05/04/24 04:08 MCV 92.8 fl (85-98) 05/04/24 04:08 MCH 29.2 pg (27-33) 05/04/24 04:08 MCHC 31.5 g/dL (30-55) 05/04/24 04:08 RDW 13.0 % (12.1-15.1) 05/04/24 04:08 Plt Count 153 10^3/cmm (157-399) L 05/04/24 04:08 MPV 11.2 fL (7.4-10.4) H 05/04/24 04:08 Neut % (Auto) 64.0 % 05/04/24 04:08 Lymph % (Auto) 21.5 % 05/04/24 04:08 [place] % (Auto) 11.3 % 05/04/24 04:08 Eos % (Auto) 2.3 % 05/04/24 04:08 Baso % (Auto) 0.6 % 05/04/24 04:08 Neut # (Auto) 4.63 10^3/uL (1.8-7.7) 05/04/24 04:08 Lymph # (Auto) 1.6 10^3/uL (0.8-4.8) 05/04/24 04:08 [place] # (Auto) 0.8 10^3/uL (0.2-0.9) 05/04/24 04:08 Eos # (Auto) 0.2 10^3/uL (0.0-0.8) 05/04/24 04:08 Baso # (Auto) 0.0 10^3/uL (0.0-0.1) 05/04/24 04:08 Nucleated RBC % (auto) 0 % 05/04/24 04:08 Nucleated RBCs # 0.0 /100WBC 05/04/24 04:08 Sodium 138 mmol/L (136-145) 05/04/24 04:08 Potassium 3.3 mmol/L (3.5-5.1) L 05/04/24 04:08 Chloride 103 mmol/L (98-107) 05/04/24 04:08 Carbon Dioxide 20 mmol/L (22-29) L 05/04/24 04:08 Anion Gap 18.3 (5-19) 05/04/24 04:08 BUN 14 mg/dL (8-23) 05/04/24 04:08 Creatinine 0.8 mg/dL (0.5-0.9) 05/04/24 04:08 GFR Calculation Not Reportable 05/04/24 04:08 Glucose 109 mg/dL (65-115) 05/04/24 04:08 Calculated Osmolality 287 mOsm/kg (285-295) 05/04/24 04:08 Lactic Acid 1.5 mmol/L (0.5-2.2) 05/02/24 05:24 Lactic Acid (Sepsis) 4.3 mmol/L (0.5-2.2) H* 05/01/24 00:18 Calcium 8.5 mg/dL (8.5-10.5) 05/04/24 04:08 Magnesium 1.8 mg/dL (1.7-2.3) 05/02/24 05:24 Total Bilirubin 0.5 mg/dL (0.15-1.2) 05/02/24 05:24 AST 18 U/L (0-32) 05/02/24 05:24 ALT 16 U/L (0-33) 05/02/24 05:24 Alkaline Phosphatase 93 U/L (35-105) 05/02/24 05:24 Troponin T Baseline 17 ng/L (0-10) H 05/01/24 15:45 Troponin T 120 Minute 19.28 ng/L (0-10) H 05/01/24 18:00 Delta Troponin T 2.28 ABS# (0-10) 05/01/24 18:00 C-Reactive Protein 4.9 mg/L (0.0-4.9) 05/01/24 15:45 C-Reactive Protein 5.0 mg/L (0.0-4.9) H 05/01/24 15:45 NT-Pro-B Natriuret Pep 930 pg/mL (0-125) H 05/01/24 15:45 Total Protein 7.0 g/dL (6.6-8.7) D 05/02/24 05:24 Albumin 3.8 g/dL (3.5-5.2) 05/02/24 05:24 Globulin 3.2 g/dL (1.3-4.6) 05/02/24 05:24 Lipase 11 U/L (13-60) L 05/01/24 15:45 Procalcitonin 0.03 ng/mL (0-0.5) 05/01/24 15:45 Urine Color Yellow (Yellow) 05/01/24 15:28 Urine Appearance Clear (CLEAR) 05/01/24 15:28 Urine pH 8 (5-7) H 05/01/24 15:28 Ur Specific Vista 1.015 (1.005-1.030) 05/01/24 15:28 Urine Protein 1+ (Negative) H 05/01/24 15:28 Urine Glucose (UA) 2+ (Normal) H 05/01/24 15:28 Urine Ketones 1+ (Negative) H 05/01/24 15:28 Urine Blood Trace (Negative) H 05/01/24 15: Urine Nitrate Negative (Negative) 05/01/24 15:28 Urine Bilirubin Neg (Negative) 05/01/24 15:28 Urine Urobilinogen Norm mg/dL (Negative) 05/01/24 15:28 Ur Leukocyte Esterase Negative (Negative) 05/01/24 15:28 Urine RBC 0-4 /hpf (0-2) H 05/01/24 15:28 Urine WBC None /hpf (0-5) 05/01/24 15:28 Ur Squamous Epith Cells None /hpf (0-5) 05/01/24 15:28 Amorphous Sediment Not Reportable 05/01/24 15:28 Urine Bacteria Trace /hpf (NONE) 05/01/24 15:28 Vitals Last Vital Signs Temp 98.0 F 05/04/24 07:54 Pulse 66 05/04/24 07:54 Resp 16 05/04/24 07:54 BP 170/87 05/04/24 07:54 Pulse Ox 93 05/04/24 07:54 O2 Del Method Room Air 05/04/24 07:54 O2 Flow Rate 1 05/03/24 04:00 Discharge Plan Discharge Patient Disposition: Home Condition: Stable Prescriptions: New hydrocodone-acetaminophen 7.5-325 mg tablet 1 tab PO Q6H PRN (Reason: pain) Qty: 20 0RF clonidine HCl 0.1 mg tablet 0.1 mg PO BID PRN (Reason: sbp>180 or dbP>100) 30 Days Qty: 60 0RF pantoprazole [Protonix] 40 mg tablet,delayed release (DR/EC) 40 mg PO BID 30 Days Qty: 60 0RF docusate sodium [Colace] 100 mg capsule 100 mg PO BID Qty: 14 0RF polyethylene glycol 3350 [Miralax] 17 gram/dose powder 17 g PO DAILY 7 Days Qty: 119 0RF chlorthalidone 25 mg Tablet 25 mg PO DAILY 30 Days Qty: 30 0RF amlodipine 5 mg Tablet 10 mg PO DAILY 30 Days Qty: 60 0RF Continued loratadine [Claritin] 10 mg tablet 10 mg PO DAILY aspirin 81 mg tablet,delayed release (DR/EC) 81 mg PO QAM cholecalciferol (vitamin D3) 25 mcg (1,000 unit) capsule 25 mcg PO BID (DME) Appeals Specialist Brace See Rx Instructions .Route .MEDSUPPLY Qty: 1 0RF Rx Instructions: As directed carisoprodol [Soma] 350 mg tablet 350 mg PO TID PRN (Reason: muscle pain) Qty: 60 2RF levothyroxine 25 mcg tablet See Rx Instructions .ROUTE .COMPLEX Qty: 30 0RF Dose Instruction: TAKE 1 TABLET BY MOUTH DAILY Rx Instructions: TAKE 1 TABLET BY MOUTH DAILY quercetin 500 mg Capsule 500 mg PO DAILY zinc acetate 50 mg (zinc) Capsule 50 mg PO DAILY alfalfa 650 mg Tablet 650 mg PO DAILY Elderberry Gummies 2 tab PO DAILY Allergy Relief (fexofenadine) 180 mg tablet 180 mg PO DAILY azelastine 137 mcg (0.1 %) spray,non-aerosol 2 spray INTRANASAL BID fluticasone propionate 50 mcg/actuation spray,suspension 2 spray INTRANASAL DAILY Changed lisinopril 40 mg tablet 40 mg PO DAILY Qty: 180 3RF Discontinued celecoxib 200 mg capsule 200 mg PO BID Qty: 180 3RF sucralfate [Carafate] 1 gram tablet 1 g PO BID Qty: 180 1RF Discharge Orders: Discharge Order (Routine); Ordered 05/04/24 Ordered By: Jimmie Combs Referrals: Bacilio Carrasco DO [Physician] - 2 weeks Tay Beauchamp FNP [Primary Care Provider] - Discharge Diet: Cardiac Discharge Activity: Resume usual activity Patient Instructions: Clonidine (By mouth), Chlorthalidone (By mouth), Amlodipi ne (By mouth), Pantoprazole (By mouth) (Protonix), Polyethylene Glycol 3350 (By mouth) (Miralax, Healthylax..., Acute Wound Care (DC), Acute Abdominal Pain (DC), Ventral Hernia (DC), GI Discharge Instructions, Opioid Safety, Post Anesthesia Care Activity Restrictions/Additional Instructions: - No lifting above 15 pounds ? Follow-up with Dr. Ramsey in 2 weeks ? For your blood pressure please follow-up with primary care provider this week for recheck blood pressure ? Monitor your blood pressure twice daily ? If your systolic is greater than 180 or diastolic is greater than 100, use chlorthalidone as needed for hypertensive urgency -Discharge on Norvasc 10 mg daily, lisinopril 40 mg daily, chlorthalidone 25 mg daily -Discharged on clonidine as needed for hypertensive urgency -Take clonidine 0.1 mg twice daily as needed if systolic blood pressure greater than 180 or diastolic greater than 100 ? If any recurrent chest pain go to the emergency room Discharge Attestations Time Spent in Discharge Care*: greater than 30 min Quality Metrics Clinical Quality Measures [ No reported AMI, CVA or VTE this stay] Coding Level of Care Code Acute Code for Chg Fwd Diagnoses Abdominal pain R10.84 Abdominal location: generalized Ventral hernia K43.9 Obstruction and gangrene presence: without obstruction or gangrene Chronic GERD K21.9 Intractable nausea and vomiting R11.2 Epigastric pain R10.13
[2024-05-04] MEDS: fentaNYL 50 mcg/mL INJ 2mL IVP ×2 (13:00→13:10)
--- NOTE | 2024-05-04 13:25 | ANE.PACU2 ---
Inpatient post-anesthesia follow up: Airway intact: Yes Vital signs: Temperature 97 F Pulse Rate 63 Respiratory Rate 16 Blood Pressure 162/57 Pulse Oximetry 95 Oxygen Delivery Me thod Simple Mask Oxygen Flow Rate 2 Fraction of Inspir ed Oxygen Hydration adequate: Yes Nausea and vomiting: No Pain level: 1 Mental status: Baseline
[2024-05-04] MEDS: amlodipine 5 mg Tablet 10 MG PO (13:48)
[2024-05-04] MEDS: lisinopril 20 mg Tablet 40 MG PO (13:49)
[2024-05-04] MEDS: chlorthalidone 25 mg Tablet PO (13:49)
[2024-05-04] MEDS: HYDROcodone-acetaminophen 7.5-325 mg Tablet 1 TAB PO ×2 (13:58→20:23)
[2024-05-04] MEDS: cloNIDine 0.1 mg Tablet PO (16:03)
--- NOTE | 2024-05-04 17:02 | PC.NURSE ---
pt unable to urinate after getting out of bed she fees pressure on her lower abdomen and feels like she needs to pee or pas gas. she sat on the BSC for 30 mins. pt still unable to pee. nurse help her ambulate down hallways with a walker. informed pt and that i will notify doctor. bladder scanned and noted 245 to 300+ ml of urine volume.
--- NOTE | 2024-05-04 18:00 | PC.NURSE ---
Encourage and educated pt on the importance of frequent ambulation even just for a short distance with rest periods postoperatively to help her pass gas and relax her bladder. pt urinated 250 ml in bedside commode. Pt seemed to look in her good spirits after activity and urination. Pt informed that doctor will keep her overnight.
--- NOTE | 2024-05-04 18:25 | P.PN_ITS ---
Subjective 2 Subjective: Patient was examined this morning, preoperatively, she denies any chest pain, no palpitations, no nausea, vomiting, awaiting surgery ? Patient was seen postop bili she tells me she does not feel well, denies any lightheadedness, dizziness, no chest pain, no palpitations, she did have hypertension postoperatively systolic 150s over 80s I have given her a dose of clonidine, she tells me that she has not urinated, she does not feel like she is passing gas she has not had a bowel movement She was monitored a few hours after, she did have a 200 mL urine output, but still complains of incomplete bladder emptying, has complaints of abdominal pain, abdominal distention, not having a bowel movement -Patient's family members are concerned about taking her home ? Will monitor overnight Vitals/I&O/Wt Last Vital Signs Temp 97 F L 05/04/24 12:50 Pulse 66 05/04/24 16:00 Resp 16 05/04/24 13:25 BP 159/83 05/04/24 16:03 Pulse Ox 95 05/04/24 13:25 O2 Del Method Simple Mask 05/04/24 13:25 O2 Flow Rate 2 05/04/24 13:25 05/04/24 05/04/24 05/04/24 06:59 14:59 22:59 Intake Total 540 / 540 118 / 658 Output Total Balance 530 / 530 118 / 648 Weight last 48 hrs Weight 114.787 kg Weight 116.891 kg Physical Exam 2 Const: COMMON NORMALS: no acute distress Resp: COMMON NORMALS: normal respiratory effort, No retractions, No use of accessory muscles and clear to auscultation bilaterally AUSCULTATION: clear to auscultation bilaterally Cardio: COMMON NORMALS: regular rate, regular rhythm, S1 normal heart sound present and S2 normal heart sound present RATE: regular rate RHYTHM: r egular rhythm HEART SOUNDS: S1 normal heart sound present and S2 normal heart sound present GI: COMMON NORMALS: Normal to inspection, nondistended, normoactive bowel sounds present and non-tender Extremity: COMMON NORMALS: no pedal edema Data 05/04/24 04:08 05/04/24 04:08 A&P Assessment and plan (1) Hypertension: Qualifiers: Hypertension type: unspecified Qualified Code(s): I10 - Essential (primary) hypertension (2) Hypertensive urgency: (3) Elevated troponin I level: (4) Subclinical hypothyroidism: (5) Intractable nausea and vomiting: (6) Ventral hernia: Qualifiers: Obstruction and gangrene presence: without obstruction or gangrene Qualified Code(s): K43.9 - Ventral hernia without obstruction or gangrene (7) Abdominal pain: Qualifiers: Abdominal location: generalized Qualified Code(s): R10.84 - Generalized abdominal pain (8) Epigastric pain: Plan #Hypertensive urgency #Dyspepsia #History of hiatal hernia? #Heartburn, epigastric pain at home #Elevated troponin, #History of GERD #Arthritis, #Obesity #Ventral abdominal hernia, status postrepair, will monitor postoperatively plan on discharging in 24 hours ? Initial troponin 17, 2-hour troponin 19. Delta 2.2. EKG no acute ST-T wave changes -Patient denies any chest pain, no shortness of breath, no cardiovascular history, cardiac echocardiogram pending -Likely type II NSTEMI related to hypertensive urgency however could rule out type I, given age, medical history, nonetheless patient denies any chest pain or shortness of breath, will monitor ? As patient is chest pain-free, no shortness of breath, no significant EKG changes, no significant troponin leak, no acute need for stress testing for now, ? Blood pressure on arrival was 223 systolic however that has come down to 150s at this time. ? Ordered GI cocktail. ? General surgery consulted by ER. Underwent EGD, no significant abnormalities ? Continue aspirin 81 at this time ? Continue lisinopril 40 daily ? Cardiac echocardiogram no acute findings ? Requires optimization of blood pressure here in the hospital, will add on clonidine point 1 mg twice daily, Norvasc 10 mg daily, lisinopril 40 mg daily, added chlorthalidone 25 mg daily DVT prophylaxis: Heparin SQ twice daily Full code Attestations 2 Medical Necessity Statement*: Patient's status post ventral hernia repair, will monitor postoperatively, plan on discharging in the next 24 hours Diagnoses Hypertension I10 Hypertension type: unspecified Hypertensive urgency I16.0 Elevated troponin I level R79.89 Subclinical hypothyroidism E03.8 Intractable nausea and vomiting R11.2 Ventral hernia K43.9 Obstruction and gangrene presence: without obstruction or gangrene Abdominal pain R10.84 Abdominal location: generalized Epigastric pain R10.13
[2024-05-04] MEDS: heparin 5,000 unit/mL INJ 1 mL 5000 UNIT SUBCUT (20:20)
[2024-05-05] VITALS: BP 128/58; PULSE 66; RESP 14; TEMP 36.7; O2SAT 93
[2024-05-05] MEDS: pantoprazole 40 mg SDV IVP (02:50)
[2024-05-05] MEDS: HYDROcodone-acetaminophen 7.5-325 mg Tablet 1 TAB PO ×2 (02:57→08:50)
[2024-05-05 03:05] LABS: Basophils % 0.1 %; Lymphocytes # 0.9 10^3/uL (0.8-4.8); Lymphocytes % 7.7 %; Mean Corpuscular HGB Conc 32.8 g/dL (30-55); Mean Corpuscular Hemoglobin 29.3 pg (27-33); Mean Corpuscular Volume 89.4 fl (85-98); Mean Platelet Volume 11.4 fL (7.4-10.4); Monocytes # 0.9 10^3/uL (0.2-0.9); Monocytes % 7.6 %; Neutrophils # 9.58 10^3/uL (1.8-7.7); Neutrophils % 84.3 %; Nucleated Red Blood Cells % 0 %; Platelet Count 185 10^3/cmm (157-399); Red Blood Count 4.81 10^6/uL (3.85-5.65); Red Cell Distribution Width 13.1 % (12.1-15.1); White Blood Count 11.35 10^3/uL (3.29-11.43)
[2024-05-05 03:30] LABS: Anion Gap 17.5 (5-19); Blood Urea Nitrogen 19 mg/dL (8-23); Calcium 8.6 mg/dL (8.5-10.5); Carbon Dioxide 25 mmol/L (22-29); Chloride 101 mmol/L (98-107); Creatinine Clr Calc Pharmacy 67.9839; Glucose 144 mg/dL (65-115); Osmolality Calculated 295 mOsm/kg (285-295); Potassium 3.5 mmol/L (3.5-5.1); Sodium 140 mmol/L (136-145)
[2024-05-05 04:00] VITALS: BP 124/63; PULSE 56; RESP 16; TEMP 36.7; O2SAT 94
[2024-05-05] MEDS: aspirin 81 mg EC Tablet PO (05:42)
[2024-05-05] MEDS: levothyroxine 25 mcg Tablet PO (05:42)
[2024-05-05 07:46] VITALS: BP 134/72; PULSE 63; RESP 18; TEMP 36.6; O2SAT 94
[2024-05-05 08:00] VITALS: BP 134/72
[2024-05-05 08:27] VITALS: BP 134/72
[2024-05-05] MEDS: chlorthalidone 25 mg Tablet PO (08:27)
[2024-05-05] MEDS: lisinopril 20 mg Tablet 40 MG PO (08:27)
[2024-05-05] MEDS: amlodipine 5 mg Tablet 10 MG PO (08:27)
[2024-05-05] MEDS: cloNIDine 0.1 mg Tablet PO (08:27)
[2024-05-05] MEDS: heparin 5,000 unit/mL INJ 1 mL 5000 UNIT SUBCUT (08:29)
--- NOTE | 2024-05-05 10:09 | PC.SOCIAL ---
IMM Update pg 2 of IMM updated and reviewed w/ patient. Copy provided and copy dated, initialed and placed in chart.
--- NOTE | 2024-05-05 12:50 | PC.NURSE ---
Discharge Note Patient discharged to home via POV accompanied by spouse. Discharge instructions reviewed with patient and/or contracts representative. Mobile pharmacy medications and/or prescriptions provided. Belongings/home medications returned.
[2024-05-05 12:51] VITALS: BP 134/72
== END 2024-05-05 12:51 | disposition home or self-care (01) | DRG 353 ==
LOC: ER 20:21 → CSU 20:39
PROVIDERS: Internal Medicine; Surgery; Admitting Provider Internal Medicine; Emergency Provider Emergency Medicine; PCP Nurse Practitioner Family; Visit Provider Family Medicine
PROC: 0DJ08ZZ Inspection of Upper Intestinal Tract, Via Natural or Artificial Opening Endoscopic (ICD-10-PCS; CPT 43235; principal; 2024-05-02 08:30)
PROC: 0WQF4ZZ Repair Abdominal Wall, Percutaneous Endoscopic Approach (ICD-10-PCS; principal; 2024-05-04 10:05)
DX: K43.6 Other and unspecified ventral hernia with obstruction, without gangrene (principal); I21.A1 Myocardial infarction type 2; Z68.41 Body mass index [BMI] 40.0-44.9, adult; I16.0 Hypertensive urgency; K44.9 Diaphragmatic hernia without obstruction or gangrene; M17.9 Osteoarthritis of knee, unspecified; K21.9 Gastro-esophageal reflux disease without esophagitis; Z79.82 Long term (current) use of aspirin; E55.9 Vitamin D deficiency, unspecified; I10 Essential (primary) hypertension; E03.8 Other specified hypothyroidism; E66.9 Obesity, unspecified
CPT/HCPCS: 36415; 51798; 74022; 74177; 80048; 80053; 81001; 83605; 83690; 83735; 83880; 84145; 84484; 85025; 86140; 88302; 88305; 88342; 93005; 93306; 96372; 96374; 96375; 96376; 99285; A9270; C9113; G0378; J0360; J0780; J1644; J2270; J2405; J2704; J3010; J3370; J3490; J7030; Q9967

== ENCOUNTER → 2024-05-17 12:50 | Outpatient (BNVA) | payer MEDICARE, OTHER, SELFPAY | PROVIDERS: PCP Nurse Practitioner Family; Visit Provider Surgery | DX: K59.04 Chronic idiopathic constipation (principal); Z98.890 Other specified postprocedural states; Z87.19 Personal history of other diseases of the digestive system | CPT/HCPCS: 99214 ==

== ENCOUNTER → 2024-06-07 09:47 | Outpatient (BNVA) | payer MEDICARE, OTHER, SELFPAY | PROVIDERS: PCP Nurse Practitioner Family; Visit Provider Surgery | DX: K59.04 Chronic idiopathic constipation (principal); Z98.890 Other specified postprocedural states; Z87.19 Personal history of other diseases of the digestive system | CPT/HCPCS: 99214 ==

== ENCOUNTER → 2024-09-08 10:24 | Outpatient (BNVA) | payer MEDICARE, OTHER, SELFPAY | PROVIDERS: PCP Nurse Practitioner Family; Visit Provider Internal Medicine | DX: I10 Essential (primary) hypertension (principal); E03.8 Other specified hypothyroidism; E04.1 Nontoxic single thyroid nodule | CPT/HCPCS: 84439; 84443 ==

== ENCOUNTER → 2024-09-17 09:36 | Outpatient (BNVA) | payer MEDICARE, OTHER, SELFPAY | PROVIDERS: PCP Nurse Practitioner Family; Visit Provider Internal Medicine | DX: E04.1 Nontoxic single thyroid nodule (principal); E03.8 Other specified hypothyroidism; Z13.820 Encounter for screening for osteoporosis; Z98.890 Other specified postprocedural states; Z87.19 Personal history of other diseases of the digestive system; I10 Essential (primary) hypertension; M81.0 Age-related osteoporosis without current pathological fracture | CPT/HCPCS: 99214 ==

== ENCOUNTER → 2024-10-19 09:46 | Outpatient (BNVA) | payer MEDICARE, OTHER, SELFPAY | PROVIDERS: PCP Nurse Practitioner Family; Visit Provider Student in an Organized Health Care Education/Training Program | DX: M17.11 Unilateral primary osteoarthritis, right knee (principal); Z68.41 Body mass index [BMI] 40.0-44.9, adult | CPT/HCPCS: 73560; 73565; 99214 ==

== ENCOUNTER → 2025-03-10 09:19 | Outpatient (BNVA) | payer MEDICARE, OTHER, SELFPAY | PROVIDERS: PCP Nurse Practitioner Family; Visit Provider Internal Medicine | DX: I10 Essential (primary) hypertension (principal) | CPT/HCPCS: 84439; 84443 ==

== ENCOUNTER → 2025-03-17 09:37 | Outpatient (BNVA) | payer MEDICARE, OTHER, SELFPAY | PROVIDERS: PCP Nurse Practitioner Family; Visit Provider Internal Medicine | DX: E03.8 Other specified hypothyroidism (principal); E04.1 Nontoxic single thyroid nodule; Z78.0 Asymptomatic menopausal state | CPT/HCPCS: 99214 ==

== ENCOUNTER 2025-03-25 14:19 | Outpatient (CLI) | payer MEDICARE, OTHER, SELFPAY ==
--- NOTE | 2025-03-25 15:30 | XR_ITS ---
WS: [id number] SCREENING DEXA SCAN [facility] CLINICAL INFORMATION: see below FINDINGS: The L1-L4 bone mineral density measures 1.292 g/cm2. This corresponds to a T score of 0.9 and Z score of 1.5. Left forearm bone mineral density measures 0.79. This corresponds to a T score of -1.0 and Z score of 1.2. XR/XR DEXA axial skeleton* [id number] IMPRESSION: Normal bone mineralization lumbar spine. Osteopenia LEFT forearm
== END 2025-03-25 14:20 | disposition home or self-care (01) ==
PROVIDERS: PCP Nurse Practitioner Family; Visit Provider Internal Medicine
DX: Z13.820 Encounter for screening for osteoporosis (principal); Z78.0 Asymptomatic menopausal state; M85.832 Other specified disorders of bone density and structure, left forearm
CPT/HCPCS: 77080

== ENCOUNTER → 2025-09-07 10:50 | Outpatient (BNVA) | payer MEDICARE, OTHER, SELFPAY | PROVIDERS: PCP Nurse Practitioner Family; Visit Provider Nurse Practitioner Family | DX: L91.8 Other hypertrophic disorders of the skin (principal) | CPT/HCPCS: 88304 ==